=== PATIENT | female | born 1935 | race Caucasian/White ===

== ENCOUNTER 2016-06-04 12:53 | Inpatient (IN) | payer OTHER, MEDICARE ==
[2016-06-04 14:54] LABS: MCH 33.7 pg (25.7-33.7); MCHC 34.2 g/dl (32.0-36.0); MEAN CELL VOLUME 98.4 fl (80-96); MEAN PLT VOLUME 9.3 fl (7.5-11.1); PLATELET COUNT 125 K/MM3 (134-434); RDW 13.6 % (11.6-15.6)
[2016-06-04 14:59] LABS: WHITE BLOOD COUNT 34.4 K/mm3 (4.0-10.0)
[2016-06-04 15:37] LABS: ALBUMIN 3.4 g/dl (3.4-5.0); BILIRUBIN,TOTAL 1.5 mg/dL (0.2-1.0); CALCIUM 8.8 mg/dL (8.5-10.1); CREATININE 1.1 mg/dL (0.55-1.02); TOT PROT 6.7 g/dl (6.4-8.2)
[2016-06-04] MEDS ORDERED: ACETAMINOPHEN 500 MG TABLET (FP) PO ONE (15:37)
[2016-06-04] MEDS ORDERED: SODIUM CHLORIDE 0.9% 1000 ML INFUS.BAG IV PRN (15:38)
--- NOTE | 2016-06-04 15:38 | PDOC ---
History of Present Illness - General Chief Complaint: Injury Stated Complaint: FALL Time Seen by Provider: 06/04/16 14:09 History Source: Patient, Family Exam Limitations: No Limitations - History of Present Illness Initial Comments: 06/04/16 15:30 HPI: This 81 year old female with recent episode of fall and feeling weak without LOC, hitting her head or having pain from fall is brought in via EMS for evaluation. Pt without fever orally, had chils and recent bodyaches. She has a history of interstitial lung disease. Chief Compliant:fall PMH: interstitial lung disease FH: Pt has not recently traveled outside the country in the last 30 days. Pt has not been in contact with people who have traveled out of the country, in contact with people who have been ill with fever, n, v, d. SH: smoking use: former smoker illicit drug use: NONE alcohol use: NONE PSH: Home med use noted on JUL Allergies: sulfa Immunizations: PCP:dr. espinoza/nikki Past History - Past Medical History Allergies/Adverse Reactions: Allergies Allergy/AdvReac Type Severity Reaction Status Date / Time Sulfa (Sulfonamide Allergy Verified 06/04/16 13:15 Antibiotics) Home Medications: Ambulatory Orders Albuterol Sulfate Inhaler - [Ventolin HFA Inhaler -] 1 - 2 inh PO QID 03/04/13 Methenamine 1 gm MC DAILY 03/04/13 Albuterol Sulfate Inhaler - [Ventolin HFA Inhaler -] 1 - 2 inh PO QID #0 inh Latanoprost 0.005% Eye Drops [Xalatan 0.005% Eye Drops -] 1 drop OU HS #0 drops 03/07/13 Methenamine 1 gm PO BID #0 powder 03/07/13 Omeprazole [Prilosec (RX)] 20 mg PO DAILY #0 capsule.dr 03/07/13 Raloxifene HCl [Evista] 60 mg PO DAILY #0 tablet 03/07/13 Timolol Maleate [Istalol] 1 drop OU BID #0 drop.daily 03/07/13 Methenamine Hippurate 1 gm PO tablet 12/07/13 Raloxifene HCl [Evista] 60 mg PO tablet 12/07/13 Timolol Maleate 5 gm MC 12/07/13 COPD: Yes (intersitital lung disease) - Immunization History Immunization Up to Date: No - Psycho/Social/Smoking Cessation Hx Anxiety: No Suicidal Ideation: No Smoking Status: Yes Smoking History: Former smoker Have you smoked in the past 12 months: No Number of Cigarettes Smoked Daily: 0 If you are a former smoker, when did you quit?: 1969 Information on smoking cessation initiated: No Hx Alcohol Use: No Drug/Substance Use Hx: No Substance Use Type: None Hx Substance Use Treatment: No Review of Systems - Review of Systems Able to Perform ROS?: Yes Comments:: 06/04/16 15:43 General statement: I feel very weak Hematology: neg history of bleeding/blood thinners Skin: Neg for lesions, rash, bruising. HEENT: Neg symptoms Respiratory: Neg SOB or difficulty in breathing Cardiac: Neg chest pain GI: Neg pain, n/v : Neg problems on voiding MS: Neg for joint pain/stiffness, no edema Neuro: Neg for LOC, +weakness, Endocrine: Neg for excess thirst/hunger, cold/heat intolerance, excess sweating Allergies: + for allergies *Physical Exam - Vital Signs Last Vital Signs Temp Pulse Resp BP Pulse Ox 102 F H 101 H 28 H 107/55 92 L 06/04/16 14:26 06/04/16 13:00 06/04/16 13:00 06/04/16 13:00 06/04/16 13:00 - Physical Exam Comments: 06/04/16 15:43 General Appearance: This thin fraigle 81 year old lady with her at the bedside V/S: orally pt found to be 99.5 however after a while with afinding of WBC 34/ rectal temp 102, oxygen sat 92-95% but has lung disease Skin: WNL of pt's skin color, no signs of pallor, mottling, cyanosis Head:symmetrical Eyes: EOM's intact, PERRLA Ears: denies pain Nose: patent Throat: lips, teeth, gums, tongue, buccal mucos pink and moist Lungs: Chest symmetry equal. Cap refill <3 seconds. Lung sounds with rhonchi/ rales and some wheezing Cardiac: PMI at R 4MCL space, pos S1 and S2, regular rate. Abdomen: Soft, round, nontender : Not observed Muscularskeletal: walks with a cane but came in via EMS, no edema +PMS Neuro: AAOx3, cognitively intact, speech clear and appropriate. ED Treatment Course - LABORATORY CBC & Chemistry Diagram: 06/04/16 14:40 06/04/16 14:40 - ADDITIONAL ORDERS Additional order review: 06/04/16 14:40 RBC 4.01 MCV 98.4 H MCHC 34.2 RDW 13.6 MPV 9.3 Neutrophils % Y Lymphocytes % Y - RADIOLOGY Radiology Studies Ordered: Category Date Time Status CHEST X-RAY PORTABLE* [RAD] Stat Radiology 06/04/16 14:06 Completed Medical Decision Making - Medical Decision Making 06/04/16 15:46 Pt initially seen and examined. Pt with increased weakness over the last couple of days and now with a recent fall without acute injury. A/P r/o sepsis, muscular or injury 1. labs, 2. ekg 3. cxr 4. ua Pt found to have a wbc of 34. cxr with new finding of right upper lobe obacity possible to be pneumonia? with respect of wbc elevated and temp 102 pt placed in for sepsis protocol and placed on antibiotics. pt to be admitted under Dr. jordan/olga. calls placed for admission. family aware of admission. 06/04/16 16:[address] Jordan regarding admission, requested fluids to increase b/p and on zosyn, vanco, zithro. *DC/Admit/Observation/Transfer Diagnosis at time of Disposition: Right upper lobe pneumonia, Sepsis - Discharge Dispostion Condition at time of disposition: Guarded Admit: Yes - Referrals Referrals: Sherri Jordan MD [Primary Care Provider] -
[2016-06-04] MEDS ORDERED: ACETAMINOPHEN 325 MG TABLET (FP) ONE (15:42)
[2016-06-04] MEDS ORDERED: AZITHROMYCIN IVPB ONE (15:52)
[2016-06-04] MEDS ORDERED: DEXTROSE 5% IVPB ONE (15:52)
[2016-06-04] MEDS ORDERED: VANCOMYCIN 1,000 MG in DEXTROSE 5%-WATER - 250 ML IVPB ONE (15:52)
[2016-06-04] MEDS ORDERED: WATER IVPB ONE (15:52)
[2016-06-04] MEDS ORDERED: AZITHROMYCIN IVPB 250 ML IVPB ONE (16:00)
[2016-06-04] MEDS ORDERED: PIPERACILLIN/TAZOB 3.375 GM/50 ML PRE-DOCKED IV ONE (16:23)
[2016-06-04 16:43] LABS: INR 1.59 (0.82-1.09); PROTHROMBIN TIME (PATIENT) 17.6 SEC (9.98-11.88)
[2016-06-04] MEDS ORDERED: VANCOMYCIN 1 GRAM (PRE-DOCKED) 250 ML IVPB ONE (17:27)
[2016-06-04] MEDS ORDERED: PIPERACILLIN/TAZOB 3.375 GM 50 ML IVPB ONE (17:28)
[2016-06-04 17:50] LABS: URINE APPEARANCE SLCLOUDY; URINE BILIRUBIN NEGATIVE (NEGATIVE); URINE BLOOD NEGATIVE (NEGATIVE); URINE COLOR YELLOW; URINE GLUCOSE (UA) NEGATIVE (NEGATIVE); URINE KETONE NEGATIVE (NEGATIVE); URINE NITRITE NEGATIVE (NEGATIVE); URINE PROTEIN NEGATIVE (NEGATIVE); URINE UROBILINOGEN NEGATIVE E.U./dl (0.2-1.0)
[2016-06-04 17:58] LABS: URINE LEUK ESTERASE TRACE (NEGATIVE)
[2016-06-04] MEDS ORDERED: PIPERACILLIN/TAZOB 2.25 GM/50 ML PRE-DOCKED BAG IVPB SCH (18:00)
[2016-06-04 18:09] LABS: URINE MUCUS RARE; URINE RBC 1 /hpf (0-3); URINE WBC 19 /hpf (3-5)
[2016-06-04] MEDS ORDERED: ACETAMINOPHEN 325 MG TABLET (FP) PO PRN (21:20)
[2016-06-04] MEDS: ZOLPIDEM TARTRATE 5 MG TABLET PO PRN (22:21)
[2016-06-04] MEDS: LATANOPROST 0.005% OPHTH SOLN 2.5ML BOTTLE OU SCH (22:25)
[2016-06-04] MEDS: TIMOLOL 0.5% OPHTHALMIC SOL 5 ML BOTTLE OU SCH (22:26)
[2016-06-04] MEDS: DEXTROSE 5%-0.45% SALINE 1,000 ML IV SCH (22:27)
[2016-06-05] MEDS: PIPERACILLIN/TAZOB 2.25 GM/50 ML PRE-DOCKED BAG IVPB SCH ×2 (02:07→11:12)
[2016-06-05 03:30] VITALS: BMI 22.1
[2016-06-05] MEDS: DEXTROSE 5%-0.45% SALINE 1,000 ML IV SCH (06:32)
[2016-06-05] MEDS: ALBUTEROL SO4 0.083% IH SOL 2.5 MG/3 ML VIAL.NEB. NEB SCH ×5 (06:34→23:12)
[2016-06-05] MEDS ORDERED: PNEUMOC 13-VAL CONJ-DIP CRM/PF 0.5 ML DISP.SYRIN IM ONE (11:00)
[2016-06-05] MEDS: PANTOPRAZOLE 40 MG TABLET (FP) PO SCH (11:12)
[2016-06-05] MEDS ORDERED: PT OWN MED DRAWER 7, Y5N ONE ×2 (11:13→20:22)
[2016-06-05] MEDS: TIMOLOL 0.5% OPHTHALMIC SOL 5 ML BOTTLE OU SCH ×2 (11:15→22:20)
[2016-06-05] MEDS: LATANOPROST 0.005% OPHTH SOLN 2.5ML BOTTLE OU SCH ×2 (11:16→22:20)
[2016-06-05] MEDS ORDERED: DEXTROSE 5%-0.45% SALINE 1,000 ML IV SCH (11:28)
[2016-06-05] MEDS ORDERED: LEVOFLOXACIN 500 MG IVPB 100 ML IVPB SCH (11:30)
--- NOTE | 2016-06-05 11:30 | HP ---
Admitting History and Physical - Primary Care Physician PCP: Kyle Edwards - Admission Chief Complaint: fever and cough History of Present Illness: ER HISTORY HPI: This 81 year old female with recent episode of fall and feeling weak without LOC, hitting her head or having pain from fall is brought in via EMS for evaluation. Pt without fever orally, had chils and recent bodyaches. She has a history of interstitial lung disease. Pt seen by me on the floors Pt has been feeling weak, chills, SOB and coughing for the last few days. Denies any sick contacts or recent travel Cough is dry She was a heavy ex smoker History Source: Patient Limitations to Obtaining History: No Limitations - Past Medical History Cardiovascular: Yes: HTN Pulmonary: Yes: COPD, Other (interstitial lung disease) - Smoking History Smoking history: Former smoker Have you smoked in the past 12 months: No Aproximately how many cigarettes per day: 0 If you are a former smoker, when did you quit?: 1969 - Alcohol/Substance Use Hx Alcohol Use: No Home Medications - Allergies Allergies/Adverse Reactions: Allergies Allergy/AdvReac Type Severity Reaction Status Date / Time Sulfa (Sulfonamide Allergy Verified 06/04/16 13:15 Antibiotics) - Home Medications Home Medications: Ambulatory Orders Albuterol Sulfate Inhaler - [Ventolin HFA Inhaler -] 1 - 2 inh PO QID #0 inh Latanoprost 0.005% Eye Drops [Xalatan 0.005% Eye Drops -] 1 drop OU HS #0 drops 03/07/13 Omeprazole [Prilosec (RX)] 20 mg PO DAILY #0 capsule.dr 03/07/13 Timolol Maleate [Istalol] 1 drop OU BID #0 drop.daily 03/07/13 Methenamine Hippurate 1 gm PO BID tablet 12/07/13 Amlodipine Besylate 5 mg PO DAILY 06/05/16 Tiotropium [place] [Spiriva] 1 inh PO DAILY 06/05/16 Review of Systems - Review of Systems Constitutional: reports: Chills, Fever, Loss of Appetite, Weakness Cardiovascular: reports: Shortness of Breath. denies: Chest Pain Respiratory: reports: Cough, Exercise Intolerance, Wheezing Physical Examination Vital Signs: Vital Signs Temperature 97.9 F 06/05/16 06:00 Pulse Rate 88 06/05/16 06:00 Respiratory Rate 18 06/05/16 06:00 Blood Pressure 114/57 06/05/16 06:00 O2 Sat by Pulse Oximetry (%) 95 06/04/16 22:00 Constitutional: Yes: No Distress, Calm Cardiovascular: Yes: Regular Rate and Rhythm Respiratory: Yes: Diminished, Rhonchi Gastrointestinal: Yes: Normal Bowel Sounds, Soft. No: Distention, Tenderness Edema: No Psychiatric: Yes: Alert, Oriented Labs: Laboratory Results - last 24 hr 06/04/16 06/05/16 06/05/16 22:00 06:30 11:40 WBC 20.7 H D RBC 3.64 Hgb 12.2 Hct 36.3 MCV 99.9 H MCHC 33.5 RDW 13.5 Plt Count 124 L MPV 9.8 Neutrophils % 87.0 H Lymphocytes % 3.0 L D Monocytes % 6.0 Basophils % 1.0 Band Neutrophils 3.0 D Sodium Potassium Chloride Carbon Dioxide Anion Gap BUN Creatinine Creat Clearance w eGFR Random Glucose Lactic Acid 1.657 Calcium Total Bilirubin AST ALT Alkaline Phosphatase Total Protein Albumin Blood Type O POSITIVE Antibody Screen Negative 06/05/16 11:40 WBC RBC Hgb Hct MCV MCHC RDW Plt Count MPV Neutrophils % Lymphocytes % Monocytes % Basophils % Band Neutrophils Sodium 137 Potassium 3.3 L Chloride 100 Carbon Dioxide 27 Anion Gap 10 BUN 23 H D Creatinine 0.6 D Creat Clearance w eGFR > 60 Random Glucose 146 H D Lactic Acid Calcium 7.8 L Total Bilirubin 1.1 H D AST 24 D ALT 21 Alkaline Phosphatase 83 Total Protein 5.6 L Albumin 2.8 L Blood Type Antibody Screen Imaging - Results Chest X-ray: Image Reviewed (right upper lobe infiltrate) EKG: Image Reviewed (sinus tachycardia) Problem List - Problems (1) COPD (chronic obstructive pulmonary disease) Code(s): J44.9 - CHRONIC OBSTRUCTIVE PULMONARY DISEASE, UNSPECIFIED Qualifiers : COPD type: COPD with acute exacerbation Qualified Code(s): J44.1 - Chronic obstructive pulmonary disease with (acute) exacerbation (2) HTN (hypertension) Code(s): I10 - ESSENTIAL (PRIMARY) HYPERTENSION Qualifiers: Hypertension type: essential hypertension Qualified Code(s): I10 - Essential (primary) hypertension (3) Right upper lobe pneumonia Code(s): J18.9 - PNEUMONIA, UNSPECIFIED ORGANISM Qualifiers: Pneumonia type: due to unspecified organism Qualified Code(s): J18.9 - Pneumonia, unspecified organism (4) Sepsis Code(s): A41.9 - SEPSIS, UNSPECIFIED ORGANISM Assessment/Plan PLAN -- cultures pending -- on iv antibiotics' -- ID and Pulmonary eval -- check labs, replace potassium -- iv fluids -- check influenza swab, urine antigens for pneumonia -- Continue with nebs, O2-pt is not on home O2 -- DVT prophylaxis
[2016-06-05 11:45] LABS: MCH 33.5 pg (25.7-33.7); MCHC 33.5 g/dl (32.0-36.0); MEAN CELL VOLUME 99.9 fl (80-96); MEAN PLT VOLUME 9.8 fl (7.5-11.1); PLATELET COUNT 124 K/MM3 (134-434); RDW 13.5 % (11.6-15.6); WHITE BLOOD COUNT 20.7 K/mm3 (4.0-10.0)
[2016-06-05] MEDS: amLODIPine BESYLATE 5 MG TABLET (FP) PO SCH (11:47)
[2016-06-05 12:17] LABS: ALBUMIN 2.8 g/dl (3.4-5.0); ALK PHOS 83 U/L (45-117); ANION GAP 10 (8-16); BILIRUBIN,TOTAL 1.1 mg/dL (0.2-1.0); CALCIUM 7.8 mg/dL (8.5-10.1); CO2 27 mmol/L (21-32); CREATININE 0.6 mg/dL (0.55-1.02); GLUCOSE,RANDOM 146 mg/dL (74-106); SGOT/AST 24 U/L (15-37); SGPT/ALT 21 U/L (12-78); TOT PROT 5.6 g/dl (6.4-8.2)
--- NOTE | 2016-06-05 13:55 | PN ---
Progress Note (short form) - Note Progress Note: PULMONARY CONSULTATION DICTATED 06/05/16 IMP SIRS RUL CONSOLIDATION LIKELY PNEUMONIA COPD HTN ELEVATED LACTATE LEVEL PLAN IV ANTIBIOTICS INHALED BRONCHODILATORS SUPPLEMENTAL O2 IVF CHEST CT CULTURES TREND LACTATE Problem List - Problems (1) Right upper lobe pneumonia Code(s): J18.9 - PNEUMONIA, UNSPECIFIED ORGANISM (2) SIRS (systemic inflammatory response syndrome) Code(s): R65.10 - SIRS OF NON-INFECTIOUS ORIGIN W/O ACUTE ORGAN DYSFUNCTION (3) COPD (chronic obstructive pulmonary disease) Code(s): J44.9 - CHRONIC OBSTRUCTIVE PULMONARY DISEASE, UNSPECIFIED (4) HTN (hypertension) Code(s): I10 - ESSENTIAL (PRIMARY) HYPERTENSION
--- NOTE | 2016-06-05 14:39 | CONS ---
DATE OF CONSULTATION: 06/05/2016 REFERRING PHYSICIAN: Bhavna Mercado MD HISTORY OF PRESENT ILLNESS: The patient is an 81-year-old white female with a past medical history of hypertension, COPD, on Spiriva, history of frequent UTIs, admitted to [facility] with complaint of a 2-day history of fevers, chills, and profound weakness. Patient states a couple days prior to admission she started developing uncontrollable shaking chills. She also had shortness of breath and a cough as well as weakness. She apparently fell at home secondary to weakness. She denied any loss of consciousness. Denies any chest pain, nausea, vomiting. She states that she has had generalized aches and pains for the past couple of days. She presented to the emergency room as above. In the ER, she had a chest x-ray performed which revealed evidence of right upper lobe consolidation. Patient has a history of tobacco use and quit approximately 30 years ago. There is no history of occupational exposure to chemical fumes. She is currently under the care of Dr. Daniel at [facility] for COPD for which she takes Spiriva. She does complain normally of shortness of breath with moderate exertion. Denies any hemoptysis. Denies any weight loss or night sweats. Denies any unexplained fevers prior to this most recent episode. She had no recent travel and she has no pets at home. PAST MEDICAL HISTORY: Again includes COPD, on Spiriva, hypertension, a history of urinary tract infections. REVIEW OF SYSTEMS: No orthopnea. No PND. Positive weakness. Positive cough. Positive general aches. Positive fevers. Positive chills. MEDICATIONS PRIOR TO ADMISSION: Include albuterol, ethanamine, latanoprost, omeprazole, Evista, Istalol. CURRENT MEDICATIONS: Include Levaquin, Tudorza, Tylenol, Ambien, albuterol, Norvasc, normal saline, , and Protonix. PHYSICAL EXAMINATION: General: The patient is an elderly white female, well developed, awake, alert, in no acute distress. Vital Signs: She is currently afebrile, T-max is 102, respiratory rate is 20, blood pressure is 112/56, heart rate is 85, and O2 saturation is 96% on 2 L. HEENT: Normocephalic, atraumatic. Neck: Supple. Heart: Regular. S1, S2. Chest: Few crackles on the right. Abdomen: Soft. Bowel sounds are positive. Extremities: No cyanosis or edema. LABORATORIES: WBC on admission was 34.4, it is currently 20.7, hemoglobin 12.2, hematocrit 36.3, with a platelet count of 124,000. INR is 1.59. Lactate level is 3.693. BUN 23, creatinine 0.7, initial BUN is 40, creatinine 1.1. Chest x-ray reveals right upper lobe consolidation, noncalcified opacity in the right upper lobe. IMPRESSION: 1. Systemic inflammatory response syndrome. 2. Right upper lobe consolidation, likely pneumonia. 3. Chronic obstructive pulmonary disease. 4. Hypertension. 5. Elevated lactate level. PLAN: IV antibiotics. Inhaled bronchodilator. Supplemental O2. sputum culture. Serum cold agglutinin. Legionella urine antigen. Obtain CT scan of the chest. Also monitor renal function as well as electrolytes as well as CBCs. THEODORA DOTY M.D. [id number]
[2016-06-05] MEDS ORDERED: TIOTROPIUM BROMIDE 18 MCG/INH (DEVICE W/ 30 CAPSULES) IH SCH (14:45)
--- NOTE | 2016-06-05 16:58 | EKG ---
Test Reason : Blood Pressure : / mmHG Vent. Rate : 103 BPM Atrial Rate : 103 BPM P-R Int : 154 ms QRS Dur : 072 ms QT Int : 352 ms P-R-T Axes : 074 032 059 degrees QTc Int : 461 ms SINUS TACHYCARDIA PREMATURE ATRIAL COMPLEXES OTHERWISE NORMAL ECG Confirmed by DONALDO LIN MD ([id number]) on 06/05/2016 4:58:35 PM Referred By: Confirmed By:DONALDO LIN MD
--- NOTE | 2016-06-05 17:03 | PN ---
Progress Note (short form) - Note Progress Note: ID consult dictated imp/reccd 81 year old female pmh copd/ILD, last hospitalized 2012 now admitted with fever and generalized myalgias she sustained a fall at home due to generalized weakness symptoms started on Thursday with shakes and bodyaches some dry cough UTD on influenza vaccine no sick contacts lives with no travel no pets in ED found to have fever of 102 and WBC 34.4 cxray with RUL focal infiltrate given vanco/zosyn and zithromax last nigh today started on levaquin suggest continue rocephin/zithromax for CAP would f/u cultures treatment of copd per pulmonary agree with chest CT
[2016-06-05] MEDS: TIOTROPIUM BROMIDE 18 MCG/INH (DEVICE W/ 5 CAPSULES) IH SCH (17:06)
[2016-06-05] MEDS: [UNRECOGNIZED DRUG - OTHER] IV SCH (17:06)
[2016-06-05] MEDS: D5 IV SCH (17:06)
[2016-06-05] MEDS: KCL IV SCH (17:06)
[2016-06-05] MEDS: BUDESONIDE/FORMETEROL FUMARATE 160/4.5 mcg INHALER IH SCH ×2 (17:07→22:20)
[2016-06-05] MEDS: cefTRIAXone 2 GM/100 ML BAG (PRE-DOCKED) IVPB SCH (17:57)
--- NOTE | 2016-06-05 18:56 | CONS ---
DATE OF CONSULTATION: DATE OF DICTATION: 06/05/2016 REQUESTED BY: Bhavna Mercado MD This is an 81-year-old woman who presented to the emergency room yesterday with generalized weakness. She had a fall at home due to weakness. She states on Thursday she started having shakes and diffuse body aches of all her limbs. She did not take her temperature at home. She continued to have these symptoms all week. There was no nausea, vomiting, diarrhea. There is no dysuria. She had very mild cough. There is no productive cough. There is no hemoptysis. She presented because of the fall. She had a rectal temperature done in the ER that was 102. She was found to have a white count of 34,000, chest x-ray with a right upper lobe focal infiltrate, and she was admitted. She was given vancomycin, Zosyn, and Zithromax in the emergency room. The patient denies any hospitalization since 2012, the last time she was here. She has a history of COPD. She is not on any oxygen. She states she recently saw her administrative assistant coordinator and was told everything was okay. She does not recall ever being on steroids. She has not recently been on antibiotics. She has not recently been on antibiotics for anything. There is no travel, there are no sick contacts. She lives with her , who has not been ill, in terms of cough and fever. Her past medical history is notable for interstitial lung disease, she has a history of colonic polyps, diverticulosis, osteoporosis, GERD. She has had UTIs in the past. She is allergic to SULFA, which gives her a rash. Family history is notable for heart disease in her parents and her brothers. There is no history of any cancer. SOCIAL HISTORY: She is . She used to work at [employer]. She retired in 1974. She has 3 adult children. She stopped smoking 30 years ago. REVIEW OF SYSTEMS: She states she never eats much. Her weight has been stable. She has intermittent constipation. She has no diarrhea and she has no dysuria. Her medications as an outpatient include albuterol, methenamine, omeprazole, Evista, timolol, raloxifene, Spiriva, and amlodipine. Her review of systems as stated. There is no history of any abdominal pain, chest pain, nausea, vomiting, diarrhea, dysuria. PHYSICAL EXAMINATION: Vital Signs: Her temperature is 97.3. T-max is 102. Pulse is 92. Blood pressure 135/62. Respiratory rate 24. Saturating 94% on 2 L. HEENT: Normocephalic. Eyes are anicteric. She has dry oral mucosa. She has no pharyngitis. Neck: Supple. Lungs: Her lungs at the bases are clear to auscultation. She has crackles in the right upper lobe. Heart: Regular rate and rhythm. Abdomen: Soft, nontender. Extremities: Without edema. Skin: She has no rash. White count was 34.4 on admission, this morning is 20.7, hemoglobin 12.2, platelets are 124, INR is 1.5. BUN 23, creatinine 0.6, lactic acid was 2.1 on admission, was as high as 3.6, and then this morning was 1.6. Urinalysis is notable for 19 white cells and trace leukocyte esterase. Influenza screen done in the emergency room was negative. Blood cultures are negative after 24 hours. Urine culture is pending. Sputum culture is pending, as well as Legionella urinary antigen. Chest x-ray reveals a focal right upper lobe infiltrate. In summary, this is an elderly woman with COPD, ILD, with evidence of fever, chills, right upper lobe infiltrate. She has not recently been in the hospital for over 4 years, so I think it would be reasonable to treat her for community-acquired pneumonia with Rocephin and Zithromax, would follow up cultures. Treatment of COPD per Pulmonary. Would agree with chest CT as ordered. Further recommendations to follow based on her clinical course. MERLINE SERRATO M.D. [id number]
[2016-06-05] MEDS ORDERED: ACLIDINIUM BROMIDE 400 MCG/INH AERO.POWD IH SCH (22:00)
[2016-06-05] MEDS: ZOLPIDEM TARTRATE 5 MG TABLET PO PRN (22:23)
[2016-06-06] MEDS: ALBUTEROL SO4 0.083% IH SOL 2.5 MG/3 ML VIAL.NEB. NEB SCH ×4 (06:40→23:01)
[2016-06-06 08:05] LABS: BASOPHIL 0.5 % (0-2.0); EOSINOPHIL 2.3 % (0-4.5); MCH 34.4 pg (25.7-33.7); MCHC 34.8 g/dl (32.0-36.0); MEAN CELL VOLUME 98.8 fl (80-96); MEAN PLT VOLUME 9.3 fl (7.5-11.1); NEUTROPHILS 82.1 % (42.8-82.8); PLATELET COUNT 181 K/MM3 (134-434); RDW 13.5 % (11.6-15.6); WHITE BLOOD COUNT 16.3 K/mm3 (4.0-10.0)
[2016-06-06 08:16] LABS: ANION GAP 6 (8-16); CALCIUM 8.2 mg/dL (8.5-10.1); CO2 30 mmol/L (21-32); CREATININE 0.5 mg/dL (0.55-1.02); GLUCOSE,RANDOM 144 mg/dL (74-106); SGOT/AST 68 U/L (15-37); SGPT/ALT 58 U/L (12-78)
[2016-06-06 08:19] LABS: ALK PHOS 141 U/L (45-117); BILIRUBIN,TOTAL 0.7 mg/dL (0.2-1.0); TOT PROT 6.3 g/dl (6.4-8.2)
[2016-06-06] MEDS: D5 IV SCH ×2 (08:55→17:23)
[2016-06-06] MEDS: KCL IV SCH ×2 (08:55→17:23)
[2016-06-06] MEDS: [UNRECOGNIZED DRUG - OTHER] IV SCH ×2 (08:55→17:23)
--- NOTE | 2016-06-06 09:42 | PN ---
Progress Note (short form) - Note Progress Note: SUBJECTIVE: Patient seen and examined. Chart reviewed. Patient feels better. Denies pain. Breathing better. OBJECTIVE: Vital Signs - 8 hr 06/06/16 06:00 Temperature 99.8 F H Pulse Rate 99 H Respiratory 20 Rate Blood Pressure 126/80 Intake & Output 06/05/16 06/06/16 06/06/16 23:59 07:59 15:59 Intake Total 1902 618 Balance 1902 618 Intake: IV 1532 498 D5-1/2Ns - 1,000 ml @ 125 1200 mls/hr IV ASDIR [facility] Rx#: [id number] D5-1/4Ns+20 Meq KCl - 1, 332 498 000 ml @ 83 mls/hr IV ASDIR [facility] Rx#:[id number] IVPB 250 Oral 120 120 Other: Voiding Method Toilet Active Medications Acetaminophen (Tylenol -) 650 mg PO Q6H PRN PRN Reason: FEVER OR PAIN Albuterol Sulfate (Ventolin 0.083% Nebulizer Soln -) 1 amp NEB QIDR [facility] Last Admin: 06/06/16 06:40 Dose: 1 amp Amlodipine Besylate (Norvasc -) 5 mg PO DAILY [facility] Last Admin: 06/05/16 11:47 Dose: 5 mg Budesonide/Formoterol Fumarate (Symbicort 160/4.5mcg -) 2 puff IH BID [facility] Last Admin: 06/05/16 22:20 Dose: 2 puff Ceftriaxone Sodium (Rocephin 2gm Ivpb (Pre-Docked)) 2 gm IVPB DAILY [facility] Last Admin: 06/05/16 17:57 Dose: 2 gm Enoxaparin Sodium (Lovenox -) 40 mg SQ DAILY [facility] Dextrose/Sodium Chloride (D5-1/4ns+20 Meq Kcl -) 1,000 mls @ 83 mls/hr IV ASDIR [facility] Last Admin: 06/06/16 08:55 Dose: 83 mls/hr Azithromycin (Zithromax 500mg Ivpb (Pre-Docked)) 250 mls @ 250 mls/hr IVPB DAILY [facility] Latanoprost (Xalatan 0.005% Eye Drops -) 1 drop OU BID [facility] Last Admin: 06/05/16 22:20 Dose: 1 drop Pantoprazole Sodium (Protonix -) 40 mg PO DAILY [facility] Last Admin: 06/05/16 11:12 Dose: 40 mg Sodium Chloride (Normal Saline -) 250 ml IV Q20M PRN PRN Reason: MAP<65mm Hg OR SBP <90 Timolol Maleate (Timoptic 0.5%) 1 drop OU BID [facility] Last Admin: 06/05/16 22:20 Dose: 1 drop Tiotropium [place] (Spiriva -) 1 puff IH DAILY [facility] Last Admin: 06/05/16 17:06 Dose: 1 cap Zolpidem Tartrate (Ambien -) 5 mg PO HS PRN Last Admin: 06/05/16 22:23 Dose: 5 mg CBC, BMP 06/06/16 06:15 06/06/16 06:15 Laboratory Results - last 24 hr 06/05/16 06/05/16 06/06/16 11:40 11:40 06:15 WBC 20.7 H D 16.3 H RBC 3.64 3.89 Hgb 12.2 13.4 Hct 36.3 38.4 MCV 99.9 H 98.8 H MCHC 33.5 34.8 RDW 13.5 13.5 Plt Count 124 L 181 D MPV 9.8 9.3 Neutrophils % 87.0 H 82.1 Lymphocytes % 3.0 L D 5.6 L D Monocytes % 6.0 9.5 Eosinophils % 2.3 Basophils % 1.0 0.5 Band Neutrophils 3.0 D Sodium 137 Potassium 3.3 L Chloride 100 Carbon Dioxide 27 Anion Gap 10 BUN 23 H D Creatinine 0.6 D Creat Clearance w eGFR > 60 Random Glucose 146 H D Lactic Acid Calcium 7.8 L Total Bilirubin 1.1 H D AST 24 D ALT 21 Alkaline Phosphatase 83 Total Protein 5.6 L Albumin 2.8 L 06/06/16 06/06/16 06:15 08:18 WBC RBC Hgb Hct MCV MCHC RDW Plt Count MPV Neutrophils % Lymphocytes % Monocytes % Eosinophils % Basophils % Band Neutrophils Sodium 136 Potassium 3.5 Chloride 100 Carbon Dioxide 30 Anion Gap 6 L BUN 7 D Creatinine 0.5 L Creat Clearance w eGFR > 60 Random Glucose 144 H Lactic Acid 1.650 Calcium 8.2 L Total Bilirubin 0.7 D AST 68 H D ALT 58 D Alkaline Phosphatase 141 H D Total Protein 6.3 L Albumin 3.0 L Microbiology 06/04/16 15:36 Blood Culture - Preliminary Blood - Peripheral Venous NO GROWTH OBTAINED AFTER 24 HOURS, INCUBATION TO CONTINUE FOR 4 DAYS. 06/04/16 15:37 Blood Culture - Preliminary Blood - Peripheral Venous NO GROWTH OBTAINED AFTER 24 HOURS, INCUBATION TO CONTINUE FOR 4 DAYS. 06/05/16 12:00 Legionella Antigen - Final Urine For Antigen Detection Streptococcus pneumoniae Antigen (M - Final 06/05/16 12:00 Influenza Types A,B Antigen (EFRAIN) - Final Nasopharyngeal Swab - Final IMAGING: CT scan reviewed- Moderate to severe COPD, right upper lobe consolidation. PHYSICAL EXAMINATION: Constitutional: Yes: No Distress, Calm Cardiovascular: Yes: Regular Rate and Rhythm Respiratory: Yes: Diminished, Scattered Rhonchi Gastrointestinal: Yes: Normal Bowel Sounds, Soft. No: Distention, Tenderness Edema: No Psychiatric: Yes: Alert, Oriented ASSESSMENT & PLAN: - Clinically better. - Continue antibiotics. - Nebulizer treatments. - Continue mild hydration today. - Daily out of bed to chair. - Physical therapy. - Follow up electrolytes. Problem List - Problems (1) COPD (chronic obstructive pulmonary disease) Code(s): J44.9 - CHRONIC OBSTRUCTIVE PULMONARY DISEASE, UNSPECIFIED Qualifiers : COPD type: COPD with acute exacerbation Qualified Code(s): J44.1 - Chronic obstructive pulmonary disease with (acute) exacerbation (2) HTN (hypertension) Code(s): I10 - ESSENTIAL (PRIMARY) HYPERTENSION Qualifiers: Hypertension type: essential hypertension Qualified Code(s): I10 - Essential (primary) hypertension (3) Right upper lobe pneumonia Code(s): J18.9 - PNEUMONIA, UNSPECIFIED ORGANISM Qualifiers: Pneumonia type: due to unspecified organism Qualified Code(s): J18.9 - Pneumonia, unspecified organism (4) Sepsis Code(s): A41.9 - SEPSIS, UNSPECIFIED ORGANISM Documentation prepared by Macrina Saleem, acting as a medical records clerk for Sherri Jarrett MD.
[2016-06-06] MEDS ORDERED: PT OWN MED DRAWER 7, Y5N ONE (10:08)
[2016-06-06] MEDS: amLODIPine BESYLATE 5 MG TABLET (FP) PO SCH (10:14)
[2016-06-06] MEDS: ENOXAPARIN NA (PORCINE) 40 MG/0.4 ML DISP.SYRIN SQ SCH (10:14)
[2016-06-06] MEDS: PANTOPRAZOLE 40 MG TABLET (FP) PO SCH (10:15)
[2016-06-06] MEDS: TIOTROPIUM BROMIDE 18 MCG/INH (DEVICE W/ 5 CAPSULES) IH SCH (10:16)
[2016-06-06] MEDS: cefTRIAXone 2 GM/100 ML BAG (PRE-DOCKED) IVPB SCH (10:16)
[2016-06-06] MEDS: BUDESONIDE/FORMETEROL FUMARATE 160/4.5 mcg INHALER IH SCH ×2 (10:18→22:07)
[2016-06-06] MEDS: TIMOLOL 0.5% OPHTHALMIC SOL 5 ML BOTTLE OU SCH ×2 (10:20→22:07)
[2016-06-06] MEDS: LATANOPROST 0.005% OPHTH SOLN 2.5ML BOTTLE OU SCH ×2 (10:21→22:07)
--- NOTE | 2016-06-06 10:38 | PN ---
Progress Note (short form) - Note Progress Note: feels better this am less achy less fever Vital Signs Period Temp Pulse Resp BP Sys/Hook Pulse Ox Last 24 Hr 97.3 F-99.8 F 92-113 20-24 116-135/57-80 94-94 cor-rrr lungs crackles rul abd soft,nt ext no edema CBC, BMP 06/06/16 06:15 06/06/16 06:15 Microbiology 06/04/16 15:36 Blood - Peripheral Venous Blood Culture - Preliminary NO GROWTH OBTAINED AFTER 24 HOURS, INCUBATION TO CONTINUE FOR 4 DAYS. 06/04/16 15:37 Blood - Peripheral Venous Blood Culture - Preliminary NO GROWTH OBTAINED AFTER 24 HOURS, INCUBATION TO CONTINUE FOR 4 DAYS. 06/05/16 12:00 Urine For Antigen Detection Legionella Antigen - Final 06/05/16 12:00 Urine For Antigen Detection Streptococcus pneumoniae Antigen (M - Final 06/05/16 12:00 Nasopharyngeal Swab Influenza Types A,B Antigen (EFRAIN) - Final 06/05/16 12:00 Nasopharyngeal Swab - Final chest ct rul infiltrate a/p acute onset fever/chills- RUL infiltrate c/w CAP continue rocephin/zithromax she feels better today f/u cultures wbc is trending down day #2 antibiotics copd/ILD- looks more comfortable today
[2016-06-06] MEDS: AZITHROMYCIN IVPB 250 ML IVPB SCH (11:46)
--- NOTE | 2016-06-06 13:02 | PN ---
Progress Note, Physician History of Present Illness: PULMONARY ALERT,FEELING BETTER,LESS DYSPNEIC,LESS CONGESTED - Current Medication List Current Medications: Active Medications Acetaminophen (Tylenol -) 650 mg PO Q6H PRN PRN Reason: FEVER OR PAIN Albuterol Sulfate (Ventolin 0.083% Nebulizer Soln -) 1 amp NEB QIDR [facility] Last Admin: 06/06/16 06:40 Dose: 1 amp Amlodipine Besylate (Norvasc -) 5 mg PO DAILY [facility] Last Admin: 06/06/16 10:14 Dose: 5 mg Budesonide/Formoterol Fumarate (Symbicort 160/4.5mcg -) 2 puff IH BID [facility] Last Admin: 06/06/16 10:18 Dose: 2 puff Ceftriaxone Sodium (Rocephin 2gm Ivpb (Pre-Docked)) 2 gm IVPB DAILY [facility] Last Admin: 06/06/16 10:16 Dose: 2 gm Enoxaparin Sodium (Lovenox -) 40 mg SQ DAILY [facility] Last Admin: 06/06/16 10:14 Dose: 40 mg Dextrose/Sodium Chloride (D5-1/4ns+20 Meq Kcl -) 1,000 mls @ 83 mls/hr IV ASDIR [facility] Last Admin: 06/06/16 08:55 Dose: 83 mls/hr Azithromycin (Zithromax 500mg Ivpb (Pre-Docked)) 250 mls @ 250 mls/hr IVPB DAILY [facility] Last Admin: 06/06/16 11:46 Dose: 250 mls/hr Latanoprost (Xalatan 0.005% Eye Drops -) 1 drop OU BID [facility] Last Admin: 06/06/16 10:21 Dose: 1 drop Pantoprazole Sodium (Protonix -) 40 mg PO DAILY [facility] Last Admin: 06/06/16 10:15 Dose: 40 mg Sodium Chloride (Normal Saline -) 250 ml IV Q20M PRN PRN Reason: MAP<65mm Hg OR SBP <90 Timolol Maleate (Timoptic 0.5%) 1 drop OU BID [facility] Last Admin: 06/06/16 10:20 Dose: 1 drop Tiotropium [place] (Spiriva -) 1 puff IH DAILY [facility] Last Admin: 06/06/16 10:16 Dose: 1 cap Zolpidem Tartrate (Ambien -) 5 mg PO HS PRN Last Admin: 06/05/16 22:23 Dose: 5 mg - Objective Vital Signs: Vital Signs Temperature 97.6 F 06/06/16 10:26 Pulse Rate 98 H 06/06/16 10:26 Respiratory Rate 20 06/06/16 10:26 Blood Pressure 116/77 06/06/16 10:26 O2 Sat by Pulse Oximetry (%) 94 L 06/05/16 21:00 Constitutional: Yes: Calm, Thin Eyes: Yes: WNL HENT: Yes: WNL Neck: Yes: WNL Cardiovascular: Yes: Regular Rate and Rhythm, S1, S2 Respiratory: Yes: Rhonchi (FEW RHONCHI) Gastrointestinal: Yes: Normal Bowel Sounds, Soft Extremities: Yes: WNL Edema: No Labs: CBC, BMP 06/06/16 06:15 06/06/16 06:15 INR, PTT INR 1.59 (0.82-1.09) H 06/04/16 15:53 Laboratory Tests 06/06/16 08:18 Lactic Acid 1.650 - ....Imaging Cat Scan: Report Reviewed, Image Reviewed (RUL CONSOLIDATION) Problem List - Problems (1) Right upper lobe pneumonia Code(s): J18.9 - PNEUMONIA, UNSPECIFIED ORGANISM Qualifiers: Pneumonia type: due to unspecified organism Qualified Code(s): J18.9 - Pneumonia, unspecified organism (2) SIRS (systemic inflammatory response syndrome) Code(s): R65.10 - SIRS OF NON-INFECTIOUS ORIGIN W/O ACUTE ORGAN DYSFUNCTION (3) COPD (chronic obstructive pulmonary disease) Code(s): J44.9 - CHRONIC OBSTRUCTIVE PULMONARY DISEASE, UNSPECIFIED Qualifiers : COPD type: COPD with acute exacerbation Qualified Code(s): J44.1 - Chronic obstructive pulmonary disease with (acute) exacerbation (4) HTN (hypertension) Code(s): I10 - ESSENTIAL (PRIMARY) HYPERTENSION Qualifiers: Hypertension type: essential hypertension Qualified Code(s): I10 - Essential (primary) hypertension Assessment/Plan IMP SIRS RUL CONSOLIDATION LIKELY PNEUMONIA COPD HTN ELEVATED LACTATE LEVEL IMPROVED PLAN IV ANTIBIOTICS INHALED BRONCHODILATORS SUPPLEMENTAL O2 IVF Problem List - Problems (1) Right upper lobe pneumonia Code(s): J18.9 - PNEUMONIA, UNSPECIFIED ORGANISM (2) SIRS (systemic inflammatory response syndrome) Code(s): R65.10 - SIRS OF NON-INFECTIOUS ORIGIN W/O ACUTE ORGAN DYSFUNCTION (3) COPD (chronic obstructive pulmonary disease) Code(s): J44.9 - CHRONIC OBSTRUCTIVE PULMONARY DISEASE, UNSPECIFIED (4) HTN (hypertension) Code(s): I10 - ESSENTIAL (PRIMARY) HYPERTENSION
[2016-06-06] MEDS: ZOLPIDEM TARTRATE 5 MG TABLET PO PRN (22:08)
[2016-06-07] MEDS: ALBUTEROL SO4 0.083% IH SOL 2.5 MG/3 ML VIAL.NEB. NEB SCH ×3 (06:29→18:25)
[2016-06-07 08:35] LABS: BASOPHIL 0.5 % (0-2.0); EOSINOPHIL 4.7 % (0-4.5); MCH 34.1 pg (25.7-33.7); MCHC 34.5 g/dl (32.0-36.0); MEAN CELL VOLUME 98.8 fl (80-96); MEAN PLT VOLUME 8.9 fl (7.5-11.1); NEUTROPHILS 74.9 % (42.8-82.8); PLATELET COUNT 146 K/MM3 (134-434); RDW 13.1 % (11.6-15.6); WHITE BLOOD COUNT 8.8 K/mm3 (4.0-10.0)
[2016-06-07 09:04] LABS: ALBUMIN 2.6 g/dl (3.4-5.0); ANION GAP 7 (8-16); CALCIUM 7.5 mg/dL (8.5-10.1); CO2 27 mmol/L (21-32); GLUCOSE,RANDOM 131 mg/dL (74-106)
[2016-06-07 09:09] LABS: ALK PHOS 169 U/L (45-117); BILIRUBIN,TOTAL 0.8 mg/dL (0.2-1.0); CREATININE 0.3 mg/dL (0.55-1.02); SGOT/AST 105 U/L (15-37); SGPT/ALT 92 U/L (12-78); TOT PROT 5.5 g/dl (6.4-8.2)
--- NOTE | 2016-06-07 09:20 | PN ---
Progress Note (short form) - Note Progress Note: Pt feels and looksbetter. wbc trending down. afebrile Vital Signs Temp 98.8 F 06/07/16 06:11 Pulse 93 H 06/07/16 06:11 Resp 20 06/07/16 06:11 BP 123/55 06/07/16 06:11 Pulse Ox 100 06/06/16 21:00 Intake & Output 06/06/16 06/06/16 06/07/16 11:59 23:59 11:59 Intake Total 968 950 950 Balance 968 950 950 Intake: IV 498 830 D5-1/4Ns+20 Meq KCl - 1, 498 830 000 ml @ 83 mls/hr IV ASDIR [facility] Rx#:[id number] IVPB 350 Oral 120 950 120 Other: Voiding Method Toilet Toilet # Unmeasured Voids Void 1 1 Bowel Movement No Active Medications Acetaminophen (Tylenol -) 650 mg PO Q6H PRN PRN Reason: FEVER OR PAIN Albuterol Sulfate (Ventolin 0.083% Nebulizer Soln -) 1 amp NEB QIDR [facility] Last Admin: 06/07/16 06:29 Dose: 1 amp Amlodipine Besylate (Norvasc -) 5 mg PO DAILY [facility] Last Admin: 06/06/16 10:14 Dose: 5 mg Budesonide/Formoterol Fumarate (Symbicort 160/4.5mcg -) 2 puff IH BID [facility] Last Admin: 06/06/16 22:07 Dose: 2 puff Ceftriaxone Sodium (Rocephin 2gm Ivpb (Pre-Docked)) 2 gm IVPB DAILY [facility] Last Admin: 06/06/16 10:16 Dose: 2 gm Enoxaparin Sodium (Lovenox -) 40 mg SQ DAILY [facility] Last Admin: 06/06/16 10:14 Dose: 40 mg Dextrose/Sodium Chloride (D5-1/4ns+20 Meq Kcl -) 1,000 mls @ 83 mls/hr IV ASDIR [facility] Last Admin: 06/06/16 17:23 Dose: Not Given Azithromycin (Zithromax 500mg Ivpb (Pre-Docked)) 250 mls @ 250 mls/hr IVPB DAILY [facility] Last Admin: 06/06/16 11:46 Dose: 250 mls/hr Latanoprost (Xalatan 0.005% Eye Drops -) 1 drop OU BID [facility] Last Admin: 06/06/16 22:07 Dose: 1 drop Pantoprazole Sodium (Protonix -) 40 mg PO DAILY [facility] Last Admin: 06/06/16 10:15 Dose: 40 mg Sodium Chloride (Normal Saline -) 250 ml IV Q20M PRN PRN Reason: MAP<65mm Hg OR SBP <90 Timolol Maleate (Timoptic 0.5%) 1 drop OU BID [facility] Last Admin: 06/06/16 22:07 Dose: 1 drop Tiotropium [place] (Spiriva -) 1 puff IH DAILY [facility] Last Admin: 06/06/16 10:16 Dose: 1 cap Zolpidem Tartrate (Ambien -) 5 mg PO HS PRN Last Admin: 06/06/16 22:08 Dose: 5 mg CBC, BMP 06/07/16 07:30 CMP Sodium 136 mmol/L (136-145) 06/07/16 07:30 Potassium 4.0 mmol/L (3.5-5.1) 06/07/16 07:30 Chloride 102 mmol/L (98-107) 06/07/16 07:30 Carbon Dioxide 27 mmol/L (21-32) 06/07/16 07:30 Anion Gap 7 (8-16) L 06/07/16 07:30 BUN 4 mg/dL (7-18) L D 06/07/16 07:30 Creatinine 0.3 mg/dL (0.55-1.02) L D 06/07/16 07:30 Creat Clearance w eGFR > 60 (>60) 06/07/16 07:30 Random Glucose 131 mg/dL (74-106) H 06/07/16 07:30 Lactic Acid 1.650 mmol/L (0.4-2.0) 06/06/16 08:18 Calcium 7.5 mg/dL (8.5-10.1) L 06/07/16 07:30 Total Bilirubin 0.8 mg/dL (0.2-1.0) 06/07/16 07:30 AST 105 U/L (15-37) H D 06/07/16 07:30 ALT 92 U/L (12-78) H D 06/07/16 07:30 Alkaline Phosphatase 169 U/L (45-117) H 06/07/16 07:30 Total Protein 5.5 g/dl (6.4-8.2) L 06/07/16 07:30 Albumin 2.6 g/dl (3.4-5.0) L 06/07/16 07:30 IMAGING: CT scan reviewed- Moderate to severe COPD, right upper lobe consolidation. PHYSICAL EXAMINATION: Constitutional: Yes: No Distress, Calm Cardiovascular: Yes: Regular Rate and Rhythm Respiratory: Yes: Diminished, few Scattered Rhonchi Gastrointestinal: Yes: Normal Bowel Sounds, Soft. No: Distention, Tenderness Edema: No Psychiatric: Yes: Alert, Oriented ASSESSMENT & PLAN: - Clinically better. - Continue antibiotics. - Nebulizer treatments. - d/c fluids - Daily out of bed to chair. - Physical therapy. - overall better. - If stable - will consider d/c in am Problem List - Problems (1) COPD (chronic obstructive pulmonary disease) Code(s): J44.9 - CHRONIC OBSTRUCTIVE PULMONARY DISEASE, UNSPECIFIED Qualifiers : COPD type: COPD with acute exacerbation Qualified Code(s): J44.1 - Chronic obstructive pulmonary disease with (acute) exacerbation (2) HTN (hypertension) Code(s): I10 - ESSENTIAL (PRIMARY) HYPERTENSION Qualifiers: Hypertension type: essential hypertension Qualified Code(s): I10 - Essential (primary) hypertension (3) Right upper lobe pneumonia Code(s): J18.9 - PNEUMONIA, UNSPECIFIED ORGANISM Qualifiers: Pneumonia type: due to unspecified organism Qualified Code(s): J18.9 - Pneumonia, unspecified organism (4) Sepsis Code(s): A41.9 - SEPSIS, UNSPECIFIED ORGANISM Documentation prepared by Macrina Saleem, acting as a medical fee clerk for Sherri Jarrett MD.
[2016-06-07] MEDS: PANTOPRAZOLE 40 MG TABLET (FP) PO SCH (10:46)
[2016-06-07] MEDS: BUDESONIDE/FORMETEROL FUMARATE 160/4.5 mcg INHALER IH SCH ×2 (10:46→22:18)
[2016-06-07] MEDS: cefTRIAXone 2 GM/100 ML BAG (PRE-DOCKED) IVPB SCH (10:46)
[2016-06-07] MEDS: amLODIPine BESYLATE 5 MG TABLET (FP) PO SCH (10:46)
[2016-06-07] MEDS: ENOXAPARIN NA (PORCINE) 40 MG/0.4 ML DISP.SYRIN SQ SCH (10:46)
[2016-06-07] MEDS: TIMOLOL 0.5% OPHTHALMIC SOL 5 ML BOTTLE OU SCH ×2 (10:47→22:18)
[2016-06-07] MEDS: TIOTROPIUM BROMIDE 18 MCG/INH (DEVICE W/ 5 CAPSULES) IH SCH (10:47)
[2016-06-07] MEDS: LATANOPROST 0.005% OPHTH SOLN 2.5ML BOTTLE OU SCH ×2 (10:47→22:18)
[2016-06-07] MEDS ORDERED: PT OWN MED DRAWER 7, Y5N ONE ×2 (10:58→17:25)
--- NOTE | 2016-06-07 11:09 | PN ---
Progress Note, Physician Chief Complaint: ID Ceftriaxone and Azithromycin - Current Medication List Current Medications: Active Medications Acetaminophen (Tylenol -) 650 mg PO Q6H PRN PRN Reason: FEVER OR PAIN Albuterol Sulfate (Ventolin 0.083% Nebulizer Soln -) 1 amp NEB QIDR [facility] Last Admin: 06/07/16 06:29 Dose: 1 amp Amlodipine Besylate (Norvasc -) 5 mg PO DAILY [facility] Last Admin: 06/07/16 10:46 Dose: 5 mg Budesonide/Formoterol Fumarate (Symbicort 160/4.5mcg -) 2 puff IH BID [facility] Last Admin: 06/07/16 10:46 Dose: 2 puff Ceftriaxone Sodium (Rocephin 2gm Ivpb (Pre-Docked)) 2 gm IVPB DAILY [facility] Last Admin: 06/07/16 10:46 Dose: 2 gm Enoxaparin Sodium (Lovenox -) 40 mg SQ DAILY [facility] Last Admin: 06/07/16 10:46 Dose: 40 mg Azithromycin (Zithromax 500mg Ivpb (Pre-Docked)) 250 mls @ 250 mls/hr IVPB DAILY [facility] Last Admin: 06/06/16 11:46 Dose: 250 mls/hr Latanoprost (Xalatan 0.005% Eye Drops -) 1 drop OU BID [facility] Last Admin: 06/07/16 10:47 Dose: 1 drop Pantoprazole Sodium (Protonix -) 40 mg PO DAILY [facility] Last Admin: 06/07/16 10:46 Dose: 40 mg Sodium Chloride (Normal Saline -) 250 ml IV Q20M PRN PRN Reason: MAP<65mm Hg OR SBP <90 Timolol Maleate (Timoptic 0.5%) 1 drop OU BID [facility] Last Admin: 06/07/16 10:47 Dose: 1 drop Tiotropium [place] (Spiriva -) 1 puff IH DAILY [facility] Last Admin: 06/07/16 10:47 Dose: 1 cap Zolpidem Tartrate (Ambien -) 5 mg PO HS PRN Last Admin: 06/06/16 22:08 Dose: 5 mg - Objective Vital Signs: Vital Signs Temperature 98.9 F 06/07/16 09:00 Pulse Rate 91 H 06/07/16 09:00 Respiratory Rate 18 06/07/16 09:00 Blood Pressure 129/60 06/07/16 09:00 O2 Sat by Pulse Oximetry (%) 100 06/06/16 21:00 Constitutional: Yes: No Distress, Thin Neck: Yes: WNL, Supple Cardiovascular: Yes: S1, S2 Respiratory: Yes: WNL, Regular, CTA Bilaterally Gastrointestinal: Yes: Soft. No: Tenderness Edema: No Labs: CBC, BMP 06/07/16 07:30 06/07/16 07:30 INR, PTT INR 1.59 (0.82-1.09) H 06/04/16 15:53 Assessment/Plan Microbiology 06/05/16 12:00 Urine For Antigen Detection Legionella Antigen - Final 06/05/16 12:00 Urine For Antigen Detection Streptococcus pneumoniae Antigen (M - Final 06/04/16 16:43 Urine - Urine Clean Catch Urine Culture - Final NO GROWTH OBTAINED 06/05/16 14:20 Sputum - Expectorated Sputum Culture - Preliminary NORMAL RESPIRATORY AJAY 06/04/16 15:37 Blood - Peripheral Venous Blood Culture - Preliminary NO GROWTH OBTAINED AFTER 48 HOURS, INCUBATION TO CONTINUE FOR 3 DAYS. 06/04/16 15:36 Blood - Peripheral Venous Blood Culture - Preliminary NO GROWTH OBTAINED AFTER 48 HOURS, INCUBATION TO CONTINUE FOR 3 DAYS. Laboratory Tests 06/04/16 06/07/16 06/07/16 14:40 07:30 07:30 WBC 34.4 H* D 8.8 D Hgb 12.3 Hct 35.8 Plt Count 146 BUN 4 L D Creatinine 0.3 L D Assessment Community pneumonia improving unspecified etiology day 3 Rx Plan Perhaps switch tomorrow oral quinolone tomorrow Roberta LAMBERT
--- NOTE | 2016-06-07 11:40 | PN ---
Progress Note, Physician History of Present Illness: pulmonary alert,feeling better,less dyspneic - Current Medication List Current Medications: Active Medications Acetaminophen (Tylenol -) 650 mg PO Q6H PRN PRN Reason: FEVER OR PAIN Albuterol Sulfate (Ventolin 0.083% Nebulizer Soln -) 1 amp NEB QIDR [facility] Last Admin: 06/07/16 06:29 Dose: 1 amp Amlodipine Besylate (Norvasc -) 5 mg PO DAILY [facility] Last Admin: 06/07/16 10:46 Dose: 5 mg Budesonide/Formoterol Fumarate (Symbicort 160/4.5mcg -) 2 puff IH BID [facility] Last Admin: 06/07/16 10:46 Dose: 2 puff Ceftriaxone Sodium (Rocephin 2gm Ivpb (Pre-Docked)) 2 gm IVPB DAILY [facility] Last Admin: 06/07/16 10:46 Dose: 2 gm Enoxaparin Sodium (Lovenox -) 40 mg SQ DAILY [facility] Last Admin: 06/07/16 10:46 Dose: 40 mg Azithromycin (Zithromax 500mg Ivpb (Pre-Docked)) 250 mls @ 250 mls/hr IVPB DAILY [facility] Last Admin: 06/06/16 11:46 Dose: 250 mls/hr Latanoprost (Xalatan 0.005% Eye Drops -) 1 drop OU BID [facility] Last Admin: 06/07/16 10:47 Dose: 1 drop Pantoprazole Sodium (Protonix -) 40 mg PO DAILY [facility] Last Admin: 06/07/16 10:46 Dose: 40 mg Sodium Chloride (Normal Saline -) 250 ml IV Q20M PRN PRN Reason: MAP<65mm Hg OR SBP <90 Timolol Maleate (Timoptic 0.5%) 1 drop OU BID [facility] Last Admin: 06/07/16 10:47 Dose: 1 drop Tiotropium [place] (Spiriva -) 1 puff IH DAILY [facility] Last Admin: 06/07/16 10:47 Dose: 1 cap Zolpidem Tartrate (Ambien -) 5 mg PO HS PRN Last Admin: 06/06/16 22:08 Dose: 5 mg - Objective Vital Signs: Vital Signs Temperature 98.9 F 06/07/16 09:00 Pulse Rate 91 H 06/07/16 09:00 Respiratory Rate 18 06/07/16 09:00 Blood Pressure 129/60 06/07/16 09:00 O2 Sat by Pulse Oximetry (%) 100 06/06/16 21:00 Constitutional: Yes: Well Nourished, Calm Eyes: Yes: WNL HENT: Yes: WNL Neck: Yes: WNL Cardiovascular: Yes: Regular Rate and Rhythm, S1, S2 Respiratory: Yes: Diminished Gastrointestinal: Yes: Normal Bowel Sounds, Soft Extremities: Yes: WNL Edema: No Labs: CBC, BMP 06/07/16 07:30 06/07/16 07:30 INR, PTT INR 1.59 (0.82-1.09) H 06/04/16 15:53 Problem List - Problems (1) Right upper lobe pneumonia Code(s): J18.9 - PNEUMONIA, UNSPECIFIED ORGANISM Qualifiers: Pneumonia type: due to unspecified organism Qualified Code(s): J18.9 - Pneumonia, unspecified organism (2) SIRS (systemic inflammatory response syndrome) Code(s): R65.10 - SIRS OF NON-INFECTIOUS ORIGIN W/O ACUTE ORGAN DYSFUNCTION (3) COPD (chronic obstructive pulmonary disease) Code(s): J44.9 - CHRONIC OBSTRUCTIVE PULMONARY DISEASE, UNSPECIFIED Qualifiers : COPD type: COPD with acute exacerbation Qualified Code(s): J44.1 - Chronic obstructive pulmonary disease with (acute) exacerbation (4) HTN (hypertension) Code(s): I10 - ESSENTIAL (PRIMARY) HYPERTENSION Qualifiers: Hypertension type: essential hypertension Qualified Code(s): I10 - Essential (primary) hypertension Assessment/Plan IMP SIRS IMPROVED RUL CONSOLIDATION LIKELY PNEUMONIA COPD HTN ELEVATED LACTATE LEVEL IMPROVED PLAN IV ANTIBIOTICS PER ID INHALED BRONCHODILATORS SUPPLEMENTAL O2 IVF F/U CHEST CT 4-6 WKS TO DOCUMENT RESOLUTION OF INFILTRATE Problem List - Problems (1) Right upper lobe pneumonia Code(s): J18.9 - PNEUMONIA, UNSPECIFIED ORGANISM (2) SIRS (systemic inflammatory response syndrome) Code(s): R65.10 - SIRS OF NON-INFECTIOUS ORIGIN W/O ACUTE ORGAN DYSFUNCTION (3) COPD (chronic obstructive pulmonary disease) Code(s): J44.9 - CHRONIC OBSTRUCTIVE PULMONARY DISEASE, UNSPECIFIED (4) HTN (hypertension) Code(s): I10 - ESSENTIAL (PRIMARY) HYPERTENSION
[2016-06-07] MEDS: AZITHROMYCIN IVPB 250 ML IVPB SCH (12:01)
[2016-06-07] MEDS ORDERED: METHENAMINE HIPPURATE 1 GM PO SCH (22:00)
[2016-06-07] MEDS: METHENAMINE HIPPURATE 1 GM PO SCH (22:17)
[2016-06-08] MEDS: ALBUTEROL SO4 0.083% IH SOL 2.5 MG/3 ML VIAL.NEB. NEB SCH ×4 (07:05→19:53)
[2016-06-08 07:48] LABS: BASOPHIL 0.4 % (0-2.0); EOSINOPHIL 3.7 % (0-4.5); MCH 34.3 pg (25.7-33.7); MCHC 34.8 g/dl (32.0-36.0); MEAN CELL VOLUME 98.6 fl (80-96); MEAN PLT VOLUME 8.7 fl (7.5-11.1); NEUTROPHILS 72.1 % (42.8-82.8); PLATELET COUNT 130 K/MM3 (134-434); RDW 13.2 % (11.6-15.6); WHITE BLOOD COUNT 7.7 K/mm3 (4.0-10.0)
[2016-06-08 09:03] LABS: ALBUMIN 2.6 g/dl (3.4-5.0); ANION GAP 6 (8-16); BILIRUBIN,TOTAL 0.9 mg/dL (0.2-1.0); CALCIUM 7.7 mg/dL (8.5-10.1); CO2 30 mmol/L (21-32); CREATININE 0.3 mg/dL (0.55-1.02); GLUCOSE,RANDOM 93 mg/dL (74-106); SGOT/AST 128 U/L (15-37); SGPT/ALT 117 U/L (12-78); TOT PROT 5.3 g/dl (6.4-8.2)
[2016-06-08 09:04] LABS: ALK PHOS 186 U/L (45-117)
[2016-06-08] MEDS ORDERED: PT OWN MED DRAWER 7, Y5N ONE (09:37)
[2016-06-08] MEDS: ENOXAPARIN NA (PORCINE) 40 MG/0.4 ML DISP.SYRIN SQ SCH (09:42)
[2016-06-08] MEDS: BUDESONIDE/FORMETEROL FUMARATE 160/4.5 mcg INHALER IH SCH ×2 (09:43→21:50)
[2016-06-08] MEDS: METHENAMINE HIPPURATE 1 GM PO SCH ×2 (09:43→21:50)
[2016-06-08] MEDS: TIOTROPIUM BROMIDE 18 MCG/INH (DEVICE W/ 5 CAPSULES) IH SCH (09:43)
[2016-06-08] MEDS: LATANOPROST 0.005% OPHTH SOLN 2.5ML BOTTLE OU SCH ×2 (09:43→21:51)
[2016-06-08] MEDS: amLODIPine BESYLATE 5 MG TABLET (FP) PO SCH (09:43)
[2016-06-08] MEDS: PANTOPRAZOLE 40 MG TABLET (FP) PO SCH (09:43)
[2016-06-08] MEDS: cefTRIAXone 2 GM/100 ML BAG (PRE-DOCKED) IVPB SCH (09:44)
[2016-06-08] MEDS: TIMOLOL 0.5% OPHTHALMIC SOL 5 ML BOTTLE OU SCH ×2 (09:44→21:50)
[2016-06-08] MEDS ORDERED: ALBUTEROL SO4 0.083% IH SOL 2.5 MG/3 ML VIAL.NEB. NEB ONE (11:09)
--- NOTE | 2016-06-08 11:14 | PN ---
Progress Note, Physician History of Present Illness: pulmonary alert,c/o dry cough,-resp distress - Current Medication List Current Medications: Active Medications Acetaminophen (Tylenol -) 650 mg PO Q6H PRN PRN Reason: FEVER OR PAIN Albuterol Sulfate (Ventolin 0.083% Nebulizer Soln -) 1 amp NEB QIDR [facility] Last Admin: 06/08/16 07:05 Dose: 1 amp Amlodipine Besylate (Norvasc -) 5 mg PO DAILY [facility] Last Admin: 06/08/16 09:43 Dose: 5 mg Budesonide/Formoterol Fumarate (Symbicort 160/4.5mcg -) 2 puff IH BID [facility] Last Admin: 06/08/16 09:43 Dose: 2 puff Ceftriaxone Sodium (Rocephin 2gm Ivpb (Pre-Docked)) 2 gm IVPB DAILY [facility] Last Admin: 06/08/16 09:44 Dose: 2 gm Enoxaparin Sodium (Lovenox -) 40 mg SQ DAILY [facility] Last Admin: 06/08/16 09:42 Dose: 40 mg Azithromycin (Zithromax 500mg Ivpb (Pre-Docked)) 250 mls @ 250 mls/hr IVPB DAILY [facility] Last Admin: 06/07/16 12:01 Dose: 250 mls/hr Latanoprost (Xalatan 0.005% Eye Drops -) 1 drop OU BID [facility] Last Admin: 06/08/16 09:43 Dose: 1 drop Methenamine (Hippurate 1 Gram) 1 each PO BID [facility] Last Admin: 06/08/16 09:43 Dose: 1 each Pantoprazole Sodium (Protonix -) 40 mg PO DAILY [facility] Last Admin: 06/08/16 09:43 Dose: 40 mg Sodium Chloride (Normal Saline -) 250 ml IV Q20M PRN PRN Reason: MAP<65mm Hg OR SBP <90 Timolol Maleate (Timoptic 0.5%) 1 drop OU BID [facility] Last Admin: 06/08/16 09:44 Dose: 1 drop Tiotropium [place] (Spiriva -) 1 puff IH DAILY [facility] Last Admin: 06/08/16 09:43 Dose: 1 cap Zolpidem Tartrate (Ambien -) 5 mg PO HS PRN Last Admin: 06/06/16 22:08 Dose: 5 mg - Objective Vital Signs: Vital Signs Temperature 98.4 F 06/08/16 09:22 Pulse Rate 92 H 06/08/16 09:22 Respiratory Rate 18 06/08/16 09:22 Blood Pressure 122/56 06/08/16 09:22 O2 Sat by Pulse Oximetry (%) 94 L 06/07/16 21:00 Constitutional: Yes: No Distress, Thin Eyes: Yes: WNL HENT: Yes: WNL Neck: Yes: WNL Cardiovascular: Yes: Regular Rate and Rhythm, S1, S2 Respiratory: Yes: Diminished Gastrointestinal: Yes: WNL Extremities: Yes: WNL Edema: No Labs: CBC, BMP 06/08/16 07:00 06/08/16 07:00 INR, PTT INR 1.59 (0.82-1.09) H 06/04/16 15:53 Problem List - Problems (1) Right upper lobe pneumonia Code(s): J18.9 - PNEUMONIA, UNSPECIFIED ORGANISM Qualifiers: Pneumonia type: due to unspecified organism Qualified Code(s): J18.9 - Pneumonia, unspecified organism (2) SIRS (systemic inflammatory response syndrome) Code(s): R65.10 - SIRS OF NON-INFECTIOUS ORIGIN W/O ACUTE ORGAN DYSFUNCTION (3) COPD (chronic obstructive pulmonary disease) Code(s): J44.9 - CHRONIC OBSTRUCTIVE PULMONARY DISEASE, UNSPECIFIED Qualifiers : COPD type: COPD with acute exacerbation Qualified Code(s): J44.1 - Chronic obstructive pulmonary disease with (acute) exacerbation (4) HTN (hypertension) Code(s): I10 - ESSENTIAL (PRIMARY) HYPERTENSION Qualifiers: Hypertension type: essential hypertension Qualified Code(s): I10 - Essential (primary) hypertension Assessment/Plan IMP SIRS IMPROVED RUL CONSOLIDATION LIKELY PNEUMONIA COPD HTN ELEVATED LACTATE LEVEL IMPROVED PLAN IV ANTIBIOTICS PER ID INHALED BRONCHODILATORS SUPPLEMENTAL O2 F/U CHEST CT 4-6 WKS TO DOCUMENT RESOLUTION OF INFILTRATE CHEST X-RAY AM Problem List - Problems (1) Right upper lobe pneumonia Code(s): J18.9 - PNEUMONIA, UNSPECIFIED ORGANISM (2) SIRS (systemic inflammatory response syndrome) Code(s): R65.10 - SIRS OF NON-INFECTIOUS ORIGIN W/O ACUTE ORGAN DYSFUNCTION (3) COPD (chronic obstructive pulmonary disease) Code(s): J44.9 - CHRONIC OBSTRUCTIVE PULMONARY DISEASE, UNSPECIFIED (4) HTN (hypertension) Code(s): I10 - ESSENTIAL (PRIMARY) HYPERTENSION
[2016-06-08] MEDS: AZITHROMYCIN IVPB 250 ML IVPB SCH (11:20)
--- NOTE | 2016-06-08 11:50 | PN ---
Progress Note (short form) - Note Progress Note: Pt seen/examined feesl little sob today. cough + pulmonary f/u noted denies cp. no distress Vital Signs Temp 98.4 F 06/08/16 09:22 Pulse 92 H 06/08/16 09:22 Resp 18 06/08/16 09:22 BP 122/56 06/08/16 09:22 Pulse Ox 94 L 06/07/16 21:00 Intake & Output 06/07/16 06/07/16 06/08/16 11:59 23:59 11:59 Intake Total 950 1172 Balance 950 1172 Intake: IV 830 332 D5-1/4Ns+20 Meq KCl - 1, 830 332 000 ml @ 83 mls/hr IV ASDIR [facility] Rx#:[id number] IVPB 350 Oral 120 490 Other: Voiding Method Toilet Toilet # Unmeasured Voids Void 1 4 2 Bowel Movement No No Active Medications Acetaminophen (Tylenol -) 650 mg PO Q6H PRN PRN Reason: FEVER OR PAIN Albuterol Sulfate (Ventolin 0.083% Nebulizer Soln -) 1 amp NEB QIDR [facility] Last Admin: 06/08/16 11:29 Dose: 1 amp Amlodipine Besylate (Norvasc -) 5 mg PO DAILY [facility] [place] Last Admin: 06/08/16 09:43 Dose: 5 mg Budesonide/Formoterol Fumarate (Symbicort 160/4.5mcg -) 2 puff IH BID [facility] [place] Last Admin: 06/08/16 09:43 Dose: 2 puff Ceftriaxone Sodium (Rocephin 2gm Ivpb (Pre-Docked)) 2 gm IVPB DAILY [facility] [place] Last Admin: 06/08/16 09:44 Dose: 2 gm Enoxaparin Sodium (Lovenox -) 40 mg SQ DAILY [facility] [place] Last Admin: 06/08/16 09:42 Dose: 40 mg Azithromycin (Zithromax 500mg Ivpb (Pre-Docked)) 250 mls @ 250 mls/hr IVPB DAILY [facility] [place] Last Admin: 06/08/16 11:20 Dose: 250 mls/hr Latanoprost (Xalatan 0.005% Eye Drops -) 1 drop OU BID [facility] [place] Last Admin: 06/08/16 09:43 Dose: 1 drop Methenamine (Hippurate 1 Gram) 1 each PO BID [facility] [place] Last Admin: 06/08/16 09:43 Dose: 1 each Pantoprazole Sodium (Protonix -) 40 mg PO DAILY [facility] [place] Last Admin: 06/08/16 09:43 Dose: 40 mg Sodium Chloride (Normal Saline -) 250 ml IV Q20M PRN PRN Reason: MAP<65mm Hg OR SBP <90 Timolol Maleate (Timoptic 0.5%) 1 drop OU BID [facility] [place] Last Admin: 06/08/16 09:44 Dose: 1 drop Tiotropium [place] (Spiriva -) 1 puff IH DAILY [facility] [place] Last Admin: 06/08/16 09:43 Dose: 1 cap Zolpidem Tartrate (Ambien -) 5 mg PO HS PRN Last Admin: 06/06/16 22:08 Dose: 5 mg CBC, BMP 06/08/16 07:00 06/08/16 07:00 PHYSICAL EXAMINATION: Constitutional: Yes: No Distress, Calm Cardiovascular: Yes: Regular Rate and Rhythm Respiratory: Yes: Diminished, few Scattered Rhonchi Gastrointestinal: Yes: Normal Bowel Sounds, Soft. No: Distention, Tenderness Edema: No Psychiatric: Yes: Alert, Oriented ASSESSMENT & PLAN: - overall stable - Continue antibiotics. - Nebulizer treatments. - - Daily out of bed to chair. - Physical therapy. - cxr in am - If stable - will consider d/c in am Problem List - Problems (1) COPD (chronic obstructive pulmonary disease) Code(s): J44.9 - CHRONIC OBSTRUCTIVE PULMONARY DISEASE, UNSPECIFIED Qualifiers : COPD type: COPD with acute exacerbation Qualified Code(s): J44.1 - Chronic obstructive pulmonary disease with (acute) exacerbation (2) HTN (hypertension) Code(s): I10 - ESSENTIAL (PRIMARY) HYPERTENSION Qualifiers: Hypertension type: essential hypertension Qualified Code(s): I10 - Essential (primary) hypertension (3) Right upper lobe pneumonia Code(s): J18.9 - PNEUMONIA, UNSPECIFIED ORGANISM Qualifiers: Pneumonia type: due to unspecified organism Qualified Code(s): J18.9 - Pneumonia, unspecified organism (4) Sepsis Code(s): A41.9 - SEPSIS, UNSPECIFIED ORGANISM
[2016-06-08] MEDS ORDERED: guaiFENesin 200 MG/10 ML 10 ML UNIT-DOSE CUPS PO PRN (14:32)
[2016-06-09] MEDS: ALBUTEROL SO4 0.083% IH SOL 2.5 MG/3 ML VIAL.NEB. NEB SCH ×3 (00:05→11:20)
[2016-06-09] MEDS: ENOXAPARIN NA (PORCINE) 40 MG/0.4 ML DISP.SYRIN SQ SCH (10:00)
[2016-06-09] MEDS: AZITHROMYCIN IVPB 250 ML IVPB SCH ×2 (10:00→10:51)
[2016-06-09] MEDS: METHENAMINE HIPPURATE 1 GM PO SCH (10:01)
[2016-06-09] MEDS: cefTRIAXone 2 GM/100 ML BAG (PRE-DOCKED) IVPB SCH ×2 (10:01→10:51)
[2016-06-09] MEDS: BUDESONIDE/FORMETEROL FUMARATE 160/4.5 mcg INHALER IH SCH (10:02)
[2016-06-09] MEDS: TIOTROPIUM BROMIDE 18 MCG/INH (DEVICE W/ 5 CAPSULES) IH SCH (10:02)
[2016-06-09] MEDS: LATANOPROST 0.005% OPHTH SOLN 2.5ML BOTTLE OU SCH (10:03)
[2016-06-09] MEDS: TIMOLOL 0.5% OPHTHALMIC SOL 5 ML BOTTLE OU SCH (10:03)
[2016-06-09] MEDS: amLODIPine BESYLATE 5 MG TABLET (FP) PO SCH (10:04)
[2016-06-09] MEDS: PANTOPRAZOLE 40 MG TABLET (FP) PO SCH (10:04)
--- NOTE | 2016-06-09 10:53 | DS ---
Physical Examination Vital Signs: Vital Signs Temperature 98.6 F 06/09/16 06:00 Pulse Rate 84 06/09/16 06:00 Respiratory Rate 20 06/09/16 06:00 Blood Pressure 110/58 06/09/16 06:00 O2 Sat by Pulse Oximetry (%) 92 L 06/08/16 21:00 Labs: CBC, BMP 06/08/16 07:00 06/08/16 07:00 <Sherri Jarrett - Last Filed: 06/09/16 10:53> Vital Signs: Vital Signs Temperature 98.6 F 06/09/16 06:00 Pulse Rate 84 06/09/16 06:00 Respiratory Rate 20 06/09/16 06:00 Blood Pressure 110/58 06/09/16 06:00 O2 Sat by Pulse Oximetry (%) 92 L 06/08/16 21:00 Findings/Remarks: Feels well. Sitting in the chair. No complaints. Denies chest pain or SOB. Constitutional: Yes: No Distress Eyes: Yes: Conjunctiva Clear Neck: Yes: Supple Cardiovascular: Yes: Regular Rate and Rhythm Respiratory: Yes: Diminished (at bases) Gastrointestinal: Yes: Soft Edema: No Labs: CBC, BMP 06/08/16 07:00 06/08/16 07:00 <Agustina Napoles - Last Filed: 06/09/16 11:01> Discharge Summary Reason For Visit: RIGHT UPPER LOBE PNEUMONIA; SEPSIS Current Active Problems COPD (chronic obstructive pulmonary disease) (Acute) HTN (hypertension) (Acute) Right upper lobe pneumonia (Acute) SIRS (systemic inflammatory response syndrome) (Acute) Sepsis (Acute) - Home Medications Comprehensive Discharge Medication List: Ambulatory Orders Albuterol Sulfate Inhaler - [Ventolin HFA Inhaler -] 1 - 2 inh PO QID #0 inh Latanoprost 0.005% Eye Drops [Xalatan 0.005% Eye Drops -] 1 drop OU HS #0 drops 03/07/13 Omeprazole [Prilosec (RX)] 20 mg PO DAILY #0 capsule.dr 03/07/13 Timolol Maleate [Istalol] 1 drop OU BID #0 drop.daily 03/07/13 Methenamine Hippurate 1 gm PO BID tablet 12/07/13 Amlodipine Besylate 5 mg PO DAILY 06/05/16 Tiotropium [place] [Spiriva] 1 inh PO DAILY 06/05/16 Guaifenesin [Robitussin -] 10 ml PO Q6H PRN #1 cup 06/09/16 Levofloxacin [Levaquin] 500 mg PO DAILY #5 tablet 06/09/16 <Sherri Jarrett - Last Filed: 06/09/16 10:53> Current Active Problems COPD (chronic obstructive pulmonary disease) (Acute) HTN (hypertension) (Acute) Right upper lobe pneumonia (Acute) SIRS (systemic inflammatory response syndrome) (Acute) Sepsis (Acute) Hospital Course: Patient admitted for Community acquired PNA. Treated with IV abx. ID followed. CXR showed R upper lobe infiltrate. Follow up CXR improved. Overall stable for d/c now. Patient has worsening of liver function tests. Likely due to Rocephin. Need to be monitored by PMD as outpatient. Will d.c on Levaquin. Plan discussed with nursing staff as well as patients who is at bedside. I also advised to repeat CXR in 3-4 weeks to document clearing of PNA. Documentation prepared by Agustina Napoles, acting as a senior medical writer for Sherri Jarrett MD. - Home Medications Comprehensive Discharge Medication List: Ambulatory Orders Albuterol Sulfate Inhaler - [Ventolin HFA Inhaler -] 1 - 2 inh PO QID #0 inh Latanoprost 0.005% Eye Drops [Xalatan 0.005% Eye Drops -] 1 drop OU HS #0 drops 03/07/13 Omeprazole [Prilosec (RX)] 20 mg PO DAILY #0 capsule.dr 03/07/13 Timolol Maleate [Istalol] 1 drop OU BID #0 drop.daily 03/07/13 Methenamine Hippurate 1 gm PO BID tablet 12/07/13 Amlodipine Besylate 5 mg PO DAILY 06/05/16 Tiotropium [place] [Spiriva] 1 inh PO DAILY 06/05/16 Guaifenesin [Robitussin -] 10 ml PO Q6H PRN #1 cup 06/09/16 Levofloxacin [Levaquin] 500 mg PO DAILY #5 tablet 06/09/16 <Agustina Napoles - Last Filed: 06/09/16 11:01> Condition: Improved - Instructions Referrals: Kyle Edwards MD [Staff Physician] - Disposition: HOME
[2016-06-09] MEDS ORDERED: PNEUMOC 13-VAL CONJ-DIP CRM/PF 0.5 ML DISP.SYRIN IM ONE (11:45)
[2016-06-09 14:21] VITALS: BP 110/52; PULSE 80; TEMP 98.2
== END 2016-06-09 12:19 | disposition home or self-care (01) | DRG 871 ==
LOC: JER 12:53 → UNDOADMIN 15:55 → JERBED 15:55 → J5S 21:26 → JERBED 06-05 23:09 → J5S 06-05 23:09
PROVIDERS: ADMIT Internal Medicine; ATTEND Internal Medicine
DX: A41.9 Sepsis, unspecified organism (principal); J18.9 Pneumonia, unspecified organism; Z87.891 Personal history of nicotine dependence; J84.89 Other specified interstitial pulmonary diseases; J44.9 Chronic obstructive pulmonary disease, unspecified; I10 Essential (primary) hypertension
CPT/HCPCS: 36415; 71010-TC; 71020-TC; 71250-TC; 80053; 81003; 81015; 83605; 85025; 85610; 86850; 86900; 86901; 87040; 87070; 87086; 87205; 87254; 87804; 87899; 90670; 93005; 93010; 94640; 97116-GP; 97162-PG; 99283-25

== ENCOUNTER 2017-04-17 18:24 | Observation (INO) | payer OTHER, MEDICARE ==
--- NOTE | 2017-04-17 18:33 | PDOC ---
Rapid Medical Evaluation Time Seen by Provider: 04/17/17 18:27 Medical Evaluation: Allergies Allergy/AdvReac Type Severity Reaction Status Date / Time Sulfa (Sulfonamide Allergy Verified 06/04/16 13:15 Antibiotics) 04/17/17 18:27 I performed a brief in-person evaluation of this patient. The patient presents with a chief complaint of: rectal bleeding x 2 days and abdominal pain today. Patient seen by pmd and sent to the emergency room for further evaluation. Pertinent physical exam findings: NAD lungs: cta bilat, unlabored breathing heart: s1s1 abdomen: +ttp llq, + bowel sounds I have ordered the following: labs, iv access ordered The patient will proceed to the Ed for further evaluation
--- NOTE | 2017-04-17 19:18 | PDOC ---
History of Present Illness - General History Source: Patient Exam Limitations: No Limitations - History of Present Illness Initial Comments: 04/17/17 19:38 81 y.o female, with significant past medical history of HTN and COPD, who presents to the emergency room complaining of 2 days of rectal bleeding and LLQ abdominal pain. The patient had 1 episode of bright red rectal bleeding yesterday and another similar episode today. She describes the LLQ pain as crampy and nonradiating. She visited Dr. Edwards in the office this afternoon, who sent her to the ED for an abdominal CT. Denies fever, chills, nausea, vomiting. Denies diarrhea, constipation. Denies hx of hemorrhoids. Denies dysuria, hematuria, urinary frequency. Denies chest pain, SOB. Denies recent travel. Denies sick contact. Allergies: Sulfa Social hx: No tobacco use. No alcohol use. PCP: Dr. Edwards <Belle Caruso - Last Filed: 04/17/17 19:53> <Sergey Haskins - Last Filed: 04/17/17 23:19> - General Chief Complaint: Rectal Bleed Stated Complaint: RECTAL BLEED Time Seen by Provider: 04/17/17 18:27 Past History <Belle Caruso - Last Filed: 04/17/17 19:53> - Past Medical History COPD: Yes (intersitital lung disease) GI Disorders: Yes (colitis) HTN: Yes - Immunization History Immunization Up to Date: No - Suicide/Smoking/Psychosocial Hx Smoking Status: Yes Smoking History: Former smoker Have you smoked in the past 12 months: No Number of Cigarettes Smoked Daily: 0 If you are a former smoker, when did you quit?: 1970 Information on smoking cessation initiated: No Hx Alcohol Use: No Drug/Substance Use Hx: No Substance Use Type: None Hx Substance Use Treatment: No <Sergey Haskins - Last Filed: 04/17/17 23:19> - Past Medical History Allergies/Adverse Reactions: Allergies Allergy/AdvReac Type Severity Reaction Status Date / Time Sulfa (Sulfonamide Allergy Verified 04/17/17 18:28 Antibiotics) Home Medications: Ambulatory Orders Omeprazole [Prilosec (RX)] 20 mg PO DAILY #0 capsule. 03/07/13 Timolol Maleate [Istalol] 1 drop OU BID #0 drop.daily 10/21/13 Methenamine Hippurate 1 gm PO BID tablet 12/07/13 Amlodipine Besylate 5 mg PO DAILY 06/05/16 Acyclovir [Zovirax -] 400 mg PO BID 04/17/17 Tiotropium [place] [Spiriva] 1 inh IH DAILY 04/17/17 Review of Systems - Review of Systems Comments:: 04/17/17 19:40 CONSTITUTIONAL: No fever, no chills, no fatigue EYES: No visual changes ENT: No ear pain, no sore throat CARDIOVASCULAR: No chest pain, no palpitations RESPIRATORY: No cough, no SOB GI: +bright red rectal bleeding. +LLQ abdominal pain. No nausea, no vomiting, no constipation, no diarrhea GENITOURINARY: No dysuria, no frequency, no hematuria MUSKULOSKELETAL: No back pain, no joint pain, no myalgias SKIN: No rash NEURO: No headache <Belle Caruso - Last Filed: 04/17/17 19:53> *Physical Exam - Vital Signs Last Vital Signs Temp Pulse Resp BP Pulse Ox 97.4 F L 90 19 145/57 93 L 04/17/17 18:28 04/17/17 18:28 04/17/17 18:28 04/17/17 18:28 04/17/17 18:28 - Physical Exam Comments: 04/17/17 19:54 CONSTITUTIONAL: Well-appearing; well-nourished; in no apparent distress HEAD: Normocephalic; atraumatic EYES: PERRL; EOM intact ENMT: External appears normal; normal oropharynx NECK: Supple; nontender; no cervical lymphadenopathy CARD: Normal S1, S2; no murmurs, rubs, or gallops RESP: Normal chest excursion with respiration; breath sounds clear and equal bilaterally; no wheezes, rhonchi, or rales ABD: +mild LLQ tenderness to palpation. Soft, non-distended; no palpable organomegaly, no palpable hernias EXT: Normal ROM in all four extremities; non-tender to palpation; distal pulses intact SKIN: Warm, dry, no rash NEURO: No focal neurological deficiencies. <Belle Caruso - Last Filed: 04/17/17 19:53> - Vital Signs Last Vital Signs Temp Pulse Resp BP Pulse Ox 97.4 F L 90 19 145/57 93 L 04/17/17 18:28 04/17/17 18:28 04/17/17 18:28 04/17/17 18:28 04/17/17 18:28 <Sergey Haskins - Last Filed: 04/17/17 23:19> ED Treatment Course - LABORATORY CBC & Chemistry Diagram: 04/17/17 19:15 04/17/17 19:15 - ADDITIONAL ORDERS Additional order review: 04/17/17 19:15 RBC 4.13 D MCV 104.1 H MCHC 34.5 RDW 13.8 MPV 8.3 Neutrophils % 73.6 Lymphocytes % 13.0 D Monocytes % 9.4 Eosinophils % 3.0 Basophils % 1.0 <Belle Caruso - Last Filed: 04/17/17 19:53> - LABORATORY CBC & Chemistry Diagram: 04/17/17 19:15 04/17/17 19:15 <Sergey Haskins - Last Filed: 04/17/17 23:19> Medical Decision Making - Medical Decision Making 04/17/17 20:07 Patient is a well-appearing 81-year-old female who presents to the ER with several episodes of rectal bleeding with associated minimal left lower quadrant abdominal pain. On initial evaluation, patient is afebrile, normotensive and afebrile. Abdominal exam reveals minimal left lower quadrant tenderness and deep palpation. Differential diagnoses includes colitis versus diverticulitis versus diverticulosis versus hemorrhoidal bleeding. Will obtain CBC/CMP/PTT/ type and screen; we'll obtain CT of abdomen and pelvis to rule out diverticulitis versus mass versus colitis. Will consult GI. Will admit. 04/17/17 23:17 Patient resting comfortably, no further episodes of rectal bleeding been noted. CT that and pelvis reveals annual thickening of the colon extending from the sigmoid flexure to the proximal descending colon. There is no evidence of acute diverticulitis. I suspect ischemic colitis at this time. Will hold off on administering antibiotics at this time. Will admit with GI consultation. <Sergey Haskins - Last Filed: 04/17/17 23:19> *DC/Admit/Observation/Transfer - Attestations Scribe Attestion: 04/17/17 19:40 Documentation prepared by DERRICK Funes, acting as medical certification specialist for Sergey Haskins MD. <Belle Caruso - Last Filed: 04/17/17 19:53> - Discharge Dispostion Admit: Yes - Attestations Physician Attestion: 04/17/17 20:07 The documentation was prepared by the scribe under my direct supervision. I have reviewed the documentation which correctly represents the findings, medical decision-making and critical action taken by me. <Sergey Haskins - Last Filed: 04/17/17 23:19> Diagnosis at time of Disposition: Ischemic colitis, Rectal bleeding - Discharge Dispostion Condition at time of disposition: Fair - Referrals Referrals: Kyle Edwards MD [Primary Care Provider] - - Patient Instructions - Post Discharge Activity
[2017-04-17 19:25] LABS: MCH 35.9 pg (25.7-33.7); MCHC 34.5 g/dl (32.0-36.0); MEAN CELL VOLUME 104.1 fl (80-96); MEAN PLT VOLUME 8.3 fl (7.5-11.1); NEUTROPHILS 73.6 % (42.8-82.8); PLATELET COUNT 190 K/MM3 (134-434); RDW 13.8 % (11.6-15.6); WHITE BLOOD COUNT 10.5 K/mm3 (4.0-10.0)
[2017-04-17] MEDS ORDERED: SODIUM CHLORIDE 250 ML IV STA (19:25)
[2017-04-17 19:46] LABS: INR 1.16 (0.82-1.09); PROTHROMBIN TIME (PATIENT) 13.1 SEC (9.98-11.88)
[2017-04-17 19:49] LABS: ACTIVATED PTT 39.5 SECONDS (26.9-34.4)
[2017-04-17 20:05] LABS: ALBUMIN 3.8 g/dl (3.4-5.0); ANION GAP 5 (8-16); BILIRUBIN,TOTAL 0.7 mg/dL (0.2-1.0); CALCIUM 8.7 mg/dL (8.5-10.1); CO2 30 mmol/L (21-32); CREATININE 0.5 mg/dL (0.55-1.02); GLUCOSE,RANDOM 101 mg/dL (74-106); SGOT/AST 33 U/L (15-37); SGPT/ALT 30 U/L (12-78); TOT PROT 7.6 g/dl (6.4-8.2)
[2017-04-17 20:06] LABS: ALK PHOS 144 U/L (45-117)
[2017-04-17 20:51] LABS: URINE APPEARANCE CLEAR; URINE BILIRUBIN NEGATIVE (NEGATIVE); URINE BLOOD NEGATIVE (NEGATIVE); URINE COLOR LTYELLOW; URINE GLUCOSE (UA) NEGATIVE (NEGATIVE); URINE KETONE NEGATIVE (NEGATIVE); URINE NITRITE NEGATIVE (NEGATIVE); URINE PROTEIN NEGATIVE (NEGATIVE); URINE UROBILINOGEN NEGATIVE mg/dL (0.2-1.0)
[2017-04-17 21:34] LABS: URINE LEUK ESTERASE 3+ (NEGATIVE)
[2017-04-17 23:29] LABS: URINE BACTERIA FEW /hpf (NEGATIVE)
--- NOTE | 2017-04-17 23:44 | PN ---
Teaching Attending Note Name of Resident: Clif Osorio ATTENDING PHYSICIAN STATEMENT I saw and evaluated the patient. I reviewed the resident's note and discussed the case with the resident. I agree with the resident's findings and plan as documented. SUBJECTIVE: 81 y/o F c/o BRBPR after constipation and cramping. Patient noted blood after straining and denies chest pain, palpitations or dizziness. OBJECTIVE: GEN: A&Ox3 HEENT: PERRLA, EOMI, MMM CVS: RRR, S1, S2 ABD: SOft, NT, ND, BS+ EXT: NL ROM, no edema Neuro: CN2-12 intact CBCD WBC 10.5 K/mm3 (4.0-10.0) H D 04/17/17 19:15 RBC 4.13 M/mm3 (3.60-5.2) D 04/17/17 19:15 Hgb 14.8 GM/dL (10.7-15.3) D 04/17/17 19:15 Hct 43.0 % (32.4-45.2) D 04/17/17 19:15 MCV 104.1 fl (80-96) H 04/17/17 19:15 MCHC 34.5 g/dl (32.0-36.0) 04/17/17 19:15 RDW 13.8 % (11.6-15.6) 04/17/17 19:15 Plt Count 190 K/MM3 (134-434) D 04/17/17 19:15 MPV 8.3 fl (7.5-11.1) 04/17/17 19:15 CMP Sodium 137 mmol/L (136-145) 04/17/17 19:15 Potassium 4.9 mmol/L (3.5-5.1) D 04/17/17 19:15 Chloride 102 mmol/L (98-107) 04/17/17 19:15 Carbon Dioxide 30 mmol/L (21-32) 04/17/17 19:15 Anion Gap 5 (8-16) L 04/17/17 19:15 BUN 12 mg/dL (7-18) D 04/17/17 19:15 Creatinine 0.5 mg/dL (0.55-1.02) L D 04/17/17 19:15 Creat Clearance w eGFR > 60 (>60) 04/17/17 19:15 Random Glucose 101 mg/dL (74-106) 04/17/17 19:15 Calcium 8.7 mg/dL (8.5-10.1) 04/17/17 19:15 Total Bilirubin 0.7 mg/dL (0.2-1.0) D 04/17/17 19:15 AST 33 U/L (15-37) D 04/17/17 19:15 ALT 30 U/L (12-78) D 04/17/17 19:15 Alkaline Phosphatase 144 U/L (45-117) H D 04/17/17 19:15 Total Protein 7.6 g/dl (6.4-8.2) D 04/17/17 19:15 Albumin 3.8 g/dl (3.4-5.0) D 04/17/17 19:15 ASSESSMENT AND PLAN: LOWER GI bleed r/o ischemic colitis vs infectious colitis, diverticulosis unlikely. NPO, IVF, monitor CBC and GI consult. Case d/w resident and plans agreed on.
[2017-04-18] MEDS: SODIUM CHLORIDE 1,000 ML IV SCH ×3 (01:00→22:48)
--- NOTE | 2017-04-18 01:00 | HP ---
CHIEF COMPLAINT: Rectal Bleeding PCP: Dr Edwards HISTORY OF PRESENT ILLNESS: Ms. Brock is an 81yo F with PMHx of HTN, COPD who presented with 2 days of BRB per rectum. She stated that she was constipated, had associated lower abdominal pain, and after having a BM, noticed BRB on tissue paper upon wiping. Her abdominal pain resolved with the BM. She has no history of hemorrhoids, denies hx of Afib, taking anticoagulants or over the counter meds. She denies CP , SOB. Denies hematuria, hemoptysis. Denies travel or sick contacts In the ER, her vital signs were stable. CT abd/pelvis was ordered which showed wall thickening of the watershed region of the splenic flexure and descending colon consistent with possible ischemic colitis. H/H is stable. She was given IVNS @100cc/hr. Recent Travel: None PAST MEDICAL HISTORY: HTN, COPD PAST SURGICAL HISTORY: No abdominal surgeries Social History: Smoking: None Alcohol: None Drugs: None Family History: Denies Allergies: Sulfa (Sulfonamide Antibiotics) Allergy (Verified 04/17/17 18:28) HOME MEDICATIONS: Home Medications Medication Instructions Recorded Omeprazole [Prilosec (RX)] 20 mg PO DAILY #0 capsule. 03/07/13 Timolol Maleate [Istalol] 1 drop OU BID #0 drop.daily 03/07/13 Methenamine Hippurate 1 gm PO BID tablet 12/07/13 Amlodipine Besylate 5 mg PO DAILY 06/05/16 Acyclovir [Zovirax -] 400 mg PO BID 04/17/17 Tiotropium [place] [Spiriva] 1 inh IH DAILY 04/17/17 REVIEW OF SYSTEMS CONSTITUTIONAL: Absent: fever, chills, diaphoresis, generalized weakness, malaise, loss of appetite, weight change HEENT: Absent: rhinorrhea, nasal congestion, throat pain, throat swelling, difficulty swallowing, mouth swelling, ear pain, eye pain, visual changes CARDIOVASCULAR: Absent: chest pain, syncope, palpitations, irregular heart rate, lightheadedness , peripheral edema RESPIRATORY: Absent: cough, shortness of breath, dyspnea with exertion, orthopnea, wheezing, stridor, hemoptysis GASTROINTESTINAL: Absent: abdominal pain, abdominal distension, nausea, vomiting, diarrhea, constipation, melena, hematochezia GENITOURINARY: Absent: dysuria, frequency, urgency, hesitancy, hematuria, flank pain, genital pain MUSCULOSKELETAL: Absent: myalgia, arthralgia, joint swelling, back pain, neck pain SKIN: Absent: rash, itching, pallor HEMATOLOGIC/IMMUNOLOGIC: Absent: easy bleeding, easy bruising, lymphadenopathy, frequent infections ENDOCRINE: Absent: unexplained weight gain, unexplained weight loss, heat intolerance, cold intolerance NEUROLOGIC: Absent: headache, focal weakness or paresthesias, dizziness, unsteady gait, seizure, mental status changes, bladder or bowel incontinence PSYCHIATRIC: Absent: anxiety, depression, suicidal or homicidal ideation, hallucinations. PHYSICAL EXAMINATION Vital Signs Temperature 97.4 F L 04/17/17 18:28 Pulse Rate 83 04/18/17 00:05 Respiratory Rate 20 04/18/17 00:05 Blood Pressure 136/62 04/18/17 00:05 O2 Sat by Pulse Oximetry (%) 97 04/18/17 00:05 GEN: AAOx3, NAD, Lying in bed comfortably. Looks well appearing. Content HEENT: PERRLA, EOMi CV: S1, S2, RRR LUNG: fine crackles especially on L side ABD: Soft, NT, ND, normoactive BS MSK: No edema, no erythema : Rectal exam showed dried blood around anus. After wiping, no ulcer was seen. STEVEN revealed blood and stool in rectal vault. Laboratory Last Values WBC 10.5 K/mm3 (4.0-10.0) H D 04/17/17 19:15 RBC 4.13 M/mm3 (3.60-5.2) D 04/17/17 19:15 Hgb 14.8 GM/dL (10.7-15.3) D 04/17/17 19:15 Hct 43.0 % (32.4-45.2) D 04/17/17 19:15 MCV 104.1 fl (80-96) H 04/17/17 19:15 MCH 35.9 pg (25.7-33.7) H 04/17/17 19:15 MCHC 34.5 g/dl (32.0-36.0) 04/17/17 19:15 RDW 13.8 % (11.6-15.6) 04/17/17 19:15 Plt Count 190 K/MM3 (134-434) D 04/17/17 19:15 MPV 8.3 fl (7.5-11.1) 04/17/17 19:15 Neutrophils % 73.6 % (42.8-82.8) 04/17/17 19:15 Lymphocytes % 13.0 % (8-40) D 04/17/17 19:15 Monocytes % 9.4 % (3.8-10.2) 04/17/17 19:15 Eosinophils % 3.0 % (0-4.5) 04/17/17 19:15 Basophils % 1.0 % (0-2.0) 04/17/17 19:15 PT with INR 13.10 SEC (9.98-11.88) H 04/17/17 19:15 INR 1.16 (0.82-1.09) H 04/17/17 19:15 PTT (Actin FS) 39.5 SECONDS (26.9-34.4) H 04/17/17 19:15 Sodium 137 mmol/L (136-145) 04/17/17 19:15 Potassium 4.9 mmol/L (3.5-5.1) D 04/17/17 19:15 Chloride 102 mmol/L (98-107) 04/17/17 19:15 Carbon Dioxide 30 mmol/L (21-32) 04/17/17 19:15 Anion Gap 5 (8-16) L 04/17/17 19:15 BUN 12 mg/dL (7-18) D 04/17/17 19:15 Creatinine 0.5 mg/dL (0.55-1.02) L D 04/17/17 19:15 Creat Clearance w eGFR > 60 (>60) 04/17/17 19:15 Random Glucose 101 mg/dL (74-106) 04/17/17 19:15 Lactic Acid 1.0 mmol/L (0.4-2.0) 04/18/17 00:01 Calcium 8.7 mg/dL (8.5-10.1) 04/17/17 19:15 Total Bilirubin 0.7 mg/dL (0.2-1.0) D 04/17/17 19:15 AST 33 U/L (15-37) D 04/17/17 19:15 ALT 30 U/L (12-78) D 04/17/17 19:15 Alkaline Phosphatase 144 U/L (45-117) H D 04/17/17 19:15 Total Protein 7.6 g/dl (6.4-8.2) D 04/17/17 19:15 Albumin 3.8 g/dl (3.4-5.0) D 04/17/17 19:15 Urine Color Ltyellow 04/17/17 20:30 Urine Appearance Clear 04/17/17 20:30 Urine pH 6.0 (5.0-8.0) 04/17/17 20:30 Ur Specific Pitcher 1.010 (1.001-1.035) 04/17/17 20:30 Urine Protein Negative (NEGATIVE) 04/17/17 20:30 Urine Glucose (UA) Negative (NEGATIVE) 04/17/17 20:30 Urine Ketones Negative (NEGATIVE) 04/17/17 20:30 Urine Blood Negative (NEGATIVE) 04/17/17 20:30 Urine Nitrite Negative (NEGATIVE) 04/17/17 20:30 Urine Bilirubin Negative (NEGATIVE) 04/17/17 20:30 Urine Urobilinogen Negative mg/dL (0.2-1.0) 04/17/17 20:30 Ur Leukocyte Esterase 3+ (NEGATIVE) H 04/17/17 20:30 Urine RBC 2-4 /hpf (0-3) 04/17/17 20:30 Urine WBC 5-10 (0-5) 04/17/17 20:30 Urine Bacteria Few /hpf (NEGATIVE) 04/17/17 20:30 Blood Type O POSITIVE 04/17/17 19:15 Antibody Screen Negative 04/17/17 19:15 Active Medications Generic Name Dose Route Start Last Admin Trade Name Freq PRN Reason Stop Dose Admin Amlodipine Besylate 5 mg 04/18/17 10:00 Norvasc - PO DAILY [facility] Sodium Chloride 1,000 mls @ 100 mls/hr 04/17/17 23:30 Normal Saline - IV ASDIR DAYA Non-Formulary Medication 20 mg 04/18/17 10:00 Omeprazole [Prilosec (Rx)] PO DAILY [facility] Non-Formulary Medication 1 drop 04/18/17 10:00 Timolol Maleate [Istalol] OU BID DAYA Tiotropium [place] 1 puff 04/18/17 10:00 Spiriva - IH DAILY [facility]A ASSESSMENT/PLAN: Ms. Brock is an 81yo F with PMHx of HTN, COPD who presented with 2 days of BRB per rectum. # Rectal Bleeding - likely secondary to ischemic colitis, CT abd/pelvis also shows moderate aortic calcifications including branch vessels. Patient likely has arteriosclerosis, which provoked the ischemic colitis. Infectious is unlikely since patient is afebrile, and not ill appearing. Ulcerative colitis is unlikely since rectal inflammation was not noted on CT and patient is not in severe pain. For ischemic colitis, will start IVNS @100cc/hr. NPO for now. GI consulted. # HTN - Hold home Amlodipine for now to keep BP from falling # COPD - Not in exacerbation, has emphysematous and honeycombing of the lung, likely interstitial and obstructive component. Will continue Spiriva IH daily # GERD - Continue home PPI # FEN - IVNS @100cc/hr, elec wnl, NPO for now # PPx - Avoid pharmacologic AC, continue SCDs for now, continue home PPI # Dispo - Observation since patient is much improved. d/w Dr Yoon Osorio MD - PGY1 Resident - Internal Medicine Visit type - Emergency Visit Emergency Visit: Yes ED Registration Date: 04/18/17 Care time: The patient presented to the Emergency Department on the above date and was hospitalized for further evaluation of their emergent condition. - New Patient This patient is new to me today: Yes Date on this admission: 04/18/17 - Critical Care Critical Care patient: No
[2017-04-18 04:09] VITALS: BMI 20.4
--- NOTE | 2017-04-18 09:22 | EKG ---
Test Reason : Blood Pressure : / mmHG Vent. Rate : 084 BPM Atrial Rate : 084 BPM P-R Int : 174 ms QRS Dur : 068 ms QT Int : 370 ms P-R-T Axes : 061 012 049 degrees QTc Int : 437 ms POOR DATA QUALITY, INTERPRETATION MAY BE ADVERSELY AFFECTED NORMAL SINUS RHYTHM NORMAL ECG WHEN COMPARED WITH ECG OF 04-JUN-2016 13:39, PREMATURE ATRIAL COMPLEXES ARE NO LONGER PRESENT Confirmed by OLY LAMBERT, RICHA ([id number]) on 04/18/2017 9:22:13 AM Referred By: Confirmed By:RICHA ALDRIDGE MD
[2017-04-18] MEDS ORDERED: amLODIPine BESYLATE 5 MG TABLET (FP) PO SCH (10:00)
[2017-04-18] MEDS ORDERED: PT OWN MED DRAWER 7, Y5N ONE (10:35)
[2017-04-18] MEDS: TIOTROPIUM BROMIDE 18 MCG/INH (DEVICE W/ 5 CAPSULES) IH SCH (10:37)
[2017-04-18] MEDS: PANTOPRAZOLE 20 MG TABLET (FP) PO SCH (10:37)
--- NOTE | 2017-04-18 12:10 | PN ---
Progress Note (short form) - Note Progress Note: Pt seen/examined. chart reviewed feels better wants to eat denies pain. mild discomfort afebrile Vital Signs Temp 97.9 F 04/18/17 06:00 Pulse 81 04/18/17 06:00 Resp 18 04/18/17 06:00 BP 127/64 04/18/17 06:00 Pulse Ox 95 04/18/17 08:53 Intake & Output 04/17/17 04/18/17 04/18/17 23:59 11:59 23:59 Intake Total 600 Balance 600 Weight 108 lb 104 lb 9.6 oz Intake: IV 600 Normal Saline - 1,000 ml 600 @ 100 mls/hr IV ASDIR DAYA Rx#:[id number] Other: Voiding Method Toilet # Unmeasured Voids Void 1 Height 5 ft 5 ft Body Mass Index (BMI) 21.1 20.4 Weight Measurement Method Built in [facility] Weight Measurement Method Est/Stated by Patient Active Medications Sodium Chloride (Normal Saline -) 1,000 mls @ 100 mls/hr IV ASDIR DAYA Last Admin: 04/18/17 01:00 Dose: 100 mls/hr Pantoprazole Sodium (Protonix -) 20 mg PO DAILY [facility] Last Admin: 04/18/17 10:37 Dose: 20 mg Timolol Maleate (Timoptic 0.5%) 1 drop OU BID DAYA Tiotropium [place] (Spiriva -) 1 puff IH DAILY [facility] Last Admin: 04/18/17 10:37 Dose: 1 puff CBC, BMP 04/17/17 19:15 04/17/17 19:15 Physical Exam. awake/ comfortable lung- clear cvs- s1, s2 rrr Abd- soft ext- no edema a/p Ischemic colitis Better continue fluids start on liquid diet and advance slowly if better- will consider d/c tomorrow ambulate discussed with pts also who is at bedside Problem List - Problems (1) HTN (hypertension) Code(s): I10 - ESSENTIAL (PRIMARY) HYPERTENSION Qualifiers: Hypertension type: essential hypertension Qualified Code(s): I10 - Essential (primary) hypertension (2) Ischemic colitis Code(s): K55.9 - VASCULAR DISORDER OF INTESTINE, UNSPECIFIED (3) Rectal bleeding Code(s): K62.5 - HEMORRHAGE OF ANUS AND RECTUM
[2017-04-18] MEDS: TIMOLOL 0.5% OPHTHALMIC SOL 5 ML BOTTLE OU SCH ×2 (13:59→22:49)
[2017-04-18] MEDS: LEVOFLOXACIN 500 MG IVPB 500 MG/100 ML BAG IVPB SCH (18:35)
[2017-04-18] MEDS ORDERED: LATANOPROST 0.005% OPHTH SOLN 2.5ML BOTTLE OS SCH (22:00)
[2017-04-19 08:37] LABS: BASOPHIL 0.6 % (0-2.0); EOSINOPHIL 3.5 % (0-4.5); MCH 35.4 pg (25.7-33.7); MEAN CELL VOLUME 104.2 fl (80-96); MEAN PLT VOLUME 8.9 fl (7.5-11.1); NEUTROPHILS 70.8 % (42.8-82.8); PLATELET COUNT 192 K/MM3 (134-434); RDW 13.3 % (11.6-15.6); WHITE BLOOD COUNT 8.8 K/mm3 (4.0-10.0)
[2017-04-19 08:48] LABS: ALBUMIN 3.2 g/dl (3.4-5.0); ANION GAP 6 (8-16); CALCIUM 7.6 mg/dL (8.5-10.1); CO2 28 mmol/L (21-32); GLUCOSE,RANDOM 87 mg/dL (74-106); MAGNESIUM 2.2 mg/dL (1.8-2.4); SGOT/AST 23 U/L (15-37); SGPT/ALT 23 U/L (12-78)
[2017-04-19 08:51] LABS: ALK PHOS 124 U/L (45-117); CREATININE 0.5 mg/dL (0.55-1.02); PHOSPHOROUS 2.2 mg/dL (2.5-4.9); TOT PROT 6.7 g/dl (6.4-8.2)
[2017-04-19] MEDS: PANTOPRAZOLE 20 MG TABLET (FP) PO SCH (09:11)
[2017-04-19] MEDS: LEVOFLOXACIN 500 MG IVPB 500 MG/100 ML BAG IVPB SCH (09:11)
[2017-04-19] MEDS ORDERED: PT OWN MED DRAWER 7, Y5N ONE (09:45)
[2017-04-19] MEDS: TIMOLOL 0.5% OPHTHALMIC SOL 5 ML BOTTLE OU SCH (09:46)
[2017-04-19] MEDS: TIOTROPIUM BROMIDE 18 MCG/INH (DEVICE W/ 5 CAPSULES) IH SCH (09:46)
[2017-04-19 11:16] VITALS: BP 141/59; PULSE 81; TEMP 97.9
--- NOTE | 2017-04-19 11:31 | DS ---
Physical Examination Vital Signs: Vital Signs Temperature 97.9 F 04/19/17 10:00 Pulse Rate 81 04/19/17 10:00 Respiratory Rate 18 04/19/17 10:00 Blood Pressure 141/59 04/19/17 10:00 O2 Sat by Pulse Oximetry (%) 92 L 04/19/17 00:00 Findings/Remarks: feels well. no complains wants to go home. denies pain. taking orally - afebrile Constitutional: Yes: No Distress, Calm Eyes: Yes: Conjunctiva Clear Neck: Yes: Supple Cardiovascular: Yes: Regular Rate and Rhythm Respiratory: Yes: CTA Bilaterally Gastrointestinal: Yes: Normal Bowel Sounds, Soft Edema: No Labs: CBC, BMP 04/19/17 06:00 04/19/17 06:00 Discharge Summary Reason For Visit: RECTAL HEMMORHAGE ISCHEMIC COLITIS Hospital Course: admitted for abd pain. treated with fluids / abx ct abd- colitis-- ischemic vs inmfammatory much better will d/c home today pt to follow with her pmd . pt also need to see gi as out pt. ct scan also showed macronodular liver-- need to follow with pmd/ gi as out pt discussed with pt/ pts in detail agree with plan. will discharge on abx discussed with nursing staff also. Condition: Improved - Instructions Referrals: Kyle Edwards MD [Primary Care Provider] - Disposition: HOME - Home Medications Comprehensive Discharge Medication List: Ambulatory Orders Omeprazole [Prilosec (RX)] 20 mg PO DAILY #0 capsule.dr 03/07/13 Timolol Maleate [Istalol] 1 drop OU BID #0 drop.daily 03/07/13 Methenamine Hippurate 1 gm PO BID tablet 12/07/13 Amlodipine Besylate 5 mg PO DAILY 06/05/16 Acyclovir [Zovirax -] 400 mg PO BID 04/17/17 Tiotropium Banks [Spiriva] 1 inh IH DAILY 04/17/17 Amlodipine Besylate [Norvasc -] 5 mg PO DAILY tablet 04/19/17 Latanoprost 0.005% Eye Drops [Xalatan 0.005% Eye Drops -] 1 drop OS HS drops Levofloxacin [Levaquin] 500 mg PO DAILY #5 tablet 04/19/17 Tiotropium Banks [Spiriva] 1 puff IH DAILY inh 04/19/17
--- NOTE | 2017-04-19 12:38 | PN ---
Progress Note (short form) - Note Progress Note: Patient seen-being discharged She had constipation with passage of a small amount of blood Hgb 14.3-unchanged from admission Advised to take laxatives on a regular basis She will follow up with her PCP Dr Edwards and her GI-Dr Quijano post discharge She had a colonoscopy 6 months ago and states she has regular colon scree due to h/o polyps FF
== END 2017-04-19 14:09 | disposition home or self-care (01) ==
LOC: JER 18:24 → UNDOADMIN 23:19 → JERBED 23:19 → UNDOADMIN 23:24 → JERBED 23:24 → J8W 04-18 00:29 → JERBED 04-18 00:29 → J8W 04-18 00:52 → INTOOBSV 04-18 00:52 → JERBED 04-18 00:52
PROVIDERS: ADMIT Internal Medicine; ATTEND Internal Medicine
PROC: 3E0F7GC Introduction of Other Therapeutic Substance into Respiratory Tract, Via Natural or Artificial Opening (ICD-10-PCS; principal; 2017-04-18)
DX: K62.5 Hemorrhage of anus and rectum (principal); K55.9 Vascular disorder of intestine, unspecified; K59.00 Constipation, unspecified; I10 Essential (primary) hypertension
CPT/HCPCS: 36415; 71010-TC; 74176-TC; 80053; 81003; 81015; 82550; 83605; 83735; 84100; 85025; 85610; 85730; 86850; 86900; 86901; 87086; 93005; 93010; 94640; 99285-25; G0378